=== PATIENT | male | born 1955 | race African-American/Black ===

== ENCOUNTER → 2020-01-05 | Outpatient (CLI) | payer OTHER, MEDICAID ==
[2019-04-12 11:52] VITALS: BP 162/97
[~2020-01-05] MED LIST: AMLO10TA4 PO; AMLO5TAB10 PO; AMOX500C PO; BYSTOLIC10 MG PO; CARV3.1210 PO; CEPH500C PO; CYCL10TA2 PO; GABA300C18 PO; GADOTERATE 7.5 MMOL/15ML VIAL. IVP ONE; HYDR-3165 PO; HYDR12.575 PO; HYDR12.58 PO; LISI-334 PO; LOSA-73 PO; LOVA20TA2 PO; MELO15TA23 PO; MELO15TA6 PO; OLME1TAB35 PO; OXYC10TA PO; OXYC15TA61 PO; cipro
--- NOTE | 2020-01-05 16:24 | KCIC ---
MR of the left foot HISTORY: Left foot mass. TECHNIQUE: Routine multiplanar sequences are obtained. FINDINGS: There is a fusiform thickening and signal abnormality within the plantar aponeurosis, at the level of the tarsometatarsal joints. This measures about 2 cm wide by 1 cm height by 3 cm anterior to posterior. This is heterogeneous, with a combination of low to intermediate T2 signal as well as some enhancement of its medial aspect. No other soft tissue mass is seen. No abnormal fluid collection or abnormal enhancement is otherwise seen. No evidence of acute fracture, marrow edema or aggressive bone destruction. Subchondral cystic changes at the lateral talar dome, likely degenerative or due to old transchondral trauma. No evidence of fracture or unstable osteochondral lesion. No significant tendon sheath fluid. No acute tendon disruption. Lisfranc ligament complex appears intact as does tarsometatarsal alignment. Degenerative changes are identified throughout the foot. These are greatest at the first MTP joint and hallux sesamoids. Prominent degenerative dorsal spurring at the navicular bone. Small chronic ossicle identified at the medial ankle just anterior to the medial malleolus. IMPRESSION: 1. Heterogeneous, partially enhancing fusiform mass at the plantar aponeurosis, plantar to the tarsometatarsal joints. This is most compatible with plantar fibromatosis. If there is any clinical growth or development of new symptoms, could further evaluate with follow-up MRI or ultrasound. 2. DJD. Electronically signed by: Hadley Rodrigues MD (01/05/2020 4:21 PM) [facility]
== END | disposition home or self-care (01) ==
LOC: KCIC MRI 11:39
PROVIDERS: ATTEND Podiatrist
DX: M19.072 Primary osteoarthritis, left ankle and foot (principal); M25.872 Other specified joint disorders, left ankle and foot
CPT/HCPCS: 73720; 82565; A9575

== ENCOUNTER 2020-10-28 12:46 | Emergency (ER) | payer OTHER, MEDICAID ==
[~2020-10-28] VITALS: Ht 193 cm; Wt 113.0 kg
[~2020-10-28 12:46] MED LIST changes: +AMLO-186 PO; -AMLO5TAB10 PO; -GADOTERATE 7.5 MMOL/15ML VIAL. IVP ONE
[2020-10-28 12:50] VITALS: BP 154/92
--- NOTE | 2020-10-28 13:38 | RAD ---
EXAMINATION: XR FOOT_RIGHT 3 VIEWS, XR EXAM OF ANKLE_RIGHT 3VIEWS CLINICAL HISTORY: Right foot and ankle pain, no injury TECHNIQUE: XR FOOT_RIGHT 3 VIEWS, XR EXAM OF ANKLE_RIGHT 3VIEWS Number of Images/Views: 3 each COMPARISON: None FINDINGS: Mild degenerative changes first MTP joint with small corticated ossicle along the lateral joint tony n, possibly related to remote trauma. Mild degenerative changes in the midfoot with dorsal spurring. Bony protuberance along the medial malleolus with adjacent small corticated ossicle, possibly related to remote trauma. No acute fracture. Small posterior calcaneal enthesophyte. No focal soft tissue sw elling. IMPRESSION: No acute osseous abnormality right foot or ankle. Degenerative changes as described. Electronically signed by: Bakari Booth DO (10/28/2020 1:35 PM) [facility]
[2020-10-28] MEDS ORDERED: ONDANSETRON ODT 4 MG TAB.RAPDIS. PO ONE (14:00)
[2020-10-28] MEDS ORDERED: HYDROcodone/APAP 5/325MG 1 TAB TABLET PO ONE (14:00)
[2020-10-28] MEDS ORDERED: predniSONE 10 MG TABLET PO ONE (14:00)
--- NOTE | 2020-10-28 14:31 | PHYS DOC ---
Past Medical History Past Medical History: CAD, High Cholesterol, Hypertension, Renal Disease, Other Additional Past Medical Histor: back pain, gout Past Surgical History: Other Additional Past Surgical Histo: rotator cuff, kidney removed, cardiac stents Smoking Status: Current Some Day Smoker Alcohol Use: Rarely Drug Use: None General Adult EDM: Chief Complaint: LOWER EXT PAIN HPI: HPI: Patient is a 64 year old male with history of CAD, hypertension, kidney disease, arthritis to bilateral feet, gout to bilateral feet and ankles, who presents to the ED today complaining of moderate pain to the right foot and ankle that began this morning when he woke up. Patient describes the pain as a burning sensation. He states the pain is worse on weightbearing. Patient denies any known injury. He states he has surgery scheduled on November 25 for his right foot which he states is bone to bone, has bone spurs as well as arthritis. He states his doctor put him on gabapentin, he states he is allergic to any NSAIDs. He states he took the gabapentin with minimal relief. Patient is requesting x-rays of the right foot or ankle. He also states he would like something for pain. He also mentioned he has some abdominal pain and he believes he is constipated. Last bowel movement was 3 days ago. Review of Systems: Review of Systems: Constitutional: Denies fever or chills. [] Eyes: Denies change in visual acuity. [] HENT: Denies nasal congestion or sore throat. [] Respiratory: Denies cough or shortness of breath. [] Cardiovascular: Denies chest pain or edema. [] GI: Reports abdominal pain, concern for constipation, denies nausea, vomiting, bloody stools or diarrhea. [] : Denies dysuria. [] Musculoskeletal: Reports right foot and right ankle pain. Integument: Denies rash. [] Neurologic: Denies headache, focal weakness or sensory changes. [] Psychiatric: Denies depression or anxiety. [] Heart Score: Risk Factors: Risk Factors: DM, Current or recent (<one month) smoker, HTN, HLP, family history of CAD, obesity. Risk Scores: Score 0 - 3: 2.5% MACE over next 6 weeks - Discharge Home Score 4 - 6: 20.3% MACE over next 6 weeks - Admit for Clinical Observation Score 7 - 10: 72.7% MACE over next 6 weeks - Early Invasive Strategies Current Medications: Current Medications Medications (Trade) Dose Ordered Sig/Tyler Start Time Stop Time Status Last Admin Dose Admin Acetaminophen/ Hydrocodone Bitart (Lortab 5/325) 2 tab 1X ONCE 10/28/20 14:00 10/28/20 14:03 DC 10/28/20 14:20 2 TAB Ondansetron HCl (Zofran Odt) 4 mg 1X ONCE 10/28/20 14:00 10/28/20 14:03 DC 10/28/20 14:20 4 MG Prednisone (Prednisone) 50 mg 1X ONCE 10/28/20 14:00 10/28/20 14:03 DC 10/28/20 14:20 50 MG Allergies: Allergies: Allergies Coded Allergies Type Severity Reaction Last Updated Verified morphine Allergy Severe Hives 08/15/15 Yes aspirin Allergy Intermediate rash 08/15/15 Yes Physical Exam: PE: Constitutional: Well developed, well nourished, no acute distress, non-toxic appearance. [] HENT: Normocephalic, atraumatic, bilateral external ears normal, oropharynx moist, no oral exudates, nose normal. [] Eyes: PERRLA, EOMI, conjunctiva normal, no discharge. [] Neck: Normal range of motion, no tenderness, supple, no stridor. [] Cardiovascular:Heart rate regular rhythm, no murmur [] Lungs & Thorax: Bilateral breath sounds clear to auscultation [] Abdomen: Bowel sounds normal, soft, no tenderness, no masses, no pulsatile masses. [] Skin: Warm, dry, no erythema, no rash. [] Back: No tenderness, no CVA tenderness. [] Extremities: Right foot and right ankle with no obvious deformity. Tenderness on palpation of the right lateral ankle. Full range of motion to the right foot and ankle. No warmth to the foot or ankle. No erythema. +2 right pedal pulse. Cap refill less than 2 seconds to the right toes. Neurologic: Alert and oriented X 3, normal motor function, normal sensory function, no focal deficits noted. [] Psychologic: Affect normal, judgement normal, mood normal. [] Current Patient Data: Vital Signs: Vital Signs Date Time Temp Pulse Resp B/P (MAP) Pulse Ox O2 Delivery O2 Flow Rate FiO2 10/28/20 12:50 98.5 81 16 154/92 (112) 98 Room Air 98.5 EKG: EKG: [] Radiology/Procedures: Radiology/Procedures: []PROCEDURE: ANKLE RIGHT 3V EXAMINATION: XR FOOT_RIGHT 3 VIEWS, XR EXAM OF ANKLE_RIGHT 3VIEWS CLINICAL HISTORY: Right foot and ankle pain, no injury TECHNIQUE: XR FOOT_RIGHT 3 VIEWS, XR EXAM OF ANKLE_RIGHT 3VIEWS Number of Images/Views: 3 each COMPARISON: None FINDINGS: Mild degenerative changes first MTP joint with small corticated ossicle along the lateral joint margin, possibly related to remote trauma. Mild degenerative changes in the midfoot with dorsal spurring. Bony protuberance along the medial malleolus with adjacent small corticated ossicle, possibly related to remote trauma. No acute fracture. Small posterior calcaneal enthesophyte. No focal soft tissue swelling. IMPRESSION: No acute osseous abnormality right foot or ankle. Degenerative changes as described. Electronically signed by: Bakari Corona DO (10/28/2020 1:35 PM) [facility] DICTATED and SIGNED BY: BAKARI CORONA DO DATE: 10/28/20 [id number] PROCEDURE: ACUTE ABDOMEN SERIES Supine and upright views of the abdomen Clinical indications: Abdominal pain. FINDINGS: No obstructive bowel pattern is evident. No significant air-fluid levels are seen. No free intraperitoneal air is seen. Moderate fecal retention and seen throughout the colon and rectosigmoid region. Surgical clips are seen within the midline of the abdomen. Osseous structures are intact. IMPRESSION: Moderate fecal retention. Electronically signed by: Shay Hanna MD (10/28/2020 2:29 PM) [id number] DICTATED and SIGNED BY: SHAY HANNA MD DATE: 10/28/20 [id number] Course & Med Decision Making: Course & Med Decision Making Pertinent Labs and Imaging studies reviewed. (See chart for details) This is a 64-year-old male patient presenting to the ED today with right foot and right ankle pain, symptoms began this morning. Has history of DJD to the right foot and ankle, arthritis, bone spurs, gout. Is scheduled to have surgery on the right foot on November 25, 2019. He is requesting x-rays of the right foot and ankle. X-rays were done in the ED. No acute findings noted. Upon giving him x-ray results he requested an x-ray of his abdomen stating he is constipated and has some pain. Acute abdominal noted for moderate constipation. Wrote patient prescription for mag citrate as well as MiraLAX. Provided follow-up information. Patient has PCP as well as a dust handler that he can follow-up with. Given prescription for Medrol Dosepak for his gout. Pratibha Disclaimer: Pratibha Disclaimer: This electronic medical record was generated, in whole or in part, using a voice recognition dictation system. Departure Departure Impression: Primary Impression: Constipation Qualified Codes: K59.00 - Constipation, unspecified Additional Impressions: Degenerative joint disease, right, foot Qualified Codes: M19.071 - Primary osteoarthritis, right ankle and foot Acute right ankle pain Disposition: DC HOME SELF CARE/HOMELESS Condition: STABLE Referrals: DAVID KILGORE MD (PCP) follow up this week Patient Instructions: Arthritis, Degenerative-Brief, Constipation, Adult Additional Instructions: You were evaluated in the emergency room, your right foot x-rays and right ankle x-rays were negative for any acute findings. Take the prescribed medications as ordered. Follow-up with your own doctor in the course of this week. Your x- ray of the abdomen was noted for moderate constipation. Increase your dietary fiber intake as well as water intake. Take MiraLAX every day. Take Mag Citrate today Scripts Polyethylene Glycol 3350 (MIRALAX) 17 Gm Powd.pack 1 PACKET PO DAILY for constipation for 2 Days, #2 PACKET 0 Refills dissolve in water Prov: ABHI PRESTON APRN 10/28/20 Magnesium Citrate (MAGNESIUM CITRATE) 296 Ml Solution 296 ML PO ONCE, #296 ML Prov: ABHI PRESTON DEVELOPMENT COACH 10/28/20 Methylprednisolone (MEDROL) 4 Mg Tab.ds.pk 1 PKG PO UD, #1 PKG Prov: ABHI PRESTON DEVELOPMENT COACH 10/28/20 ABHI PRESTON APRN Oct 28, 2020 14:31
[2020-10-28] MEDS ORDERED: METH4TAB2 PO (14:46)
[2020-10-28] MEDS ORDERED: POLY17PO29 PO (14:46)
[2020-10-28] MEDS ORDERED: MAGN296S68 PO (14:46)
== END 2020-10-28 16:20 | disposition home or self-care (01) ==
LOC: ER 12:46
DX: K59.00 Constipation, unspecified (principal); M19.071 Primary osteoarthritis, right ankle and foot; M79.671 Pain in right foot; M25.571 Pain in right ankle and joints of right foot; R20.8 Other disturbances of skin sensation; I11.9 Hypertensive heart disease without heart failure; E78.00 Pure hypercholesterolemia, unspecified; Z98.890 Other specified postprocedural states; Z87.891 Personal history of nicotine dependence; Z88.6 Allergy status to analgesic agent; Z88.8 Allergy status to other drugs, medicaments and biological substances
CPT/HCPCS: 73610; 73630; 74022; 99284; J7512

== ENCOUNTER → 2020-11-26 | Outpatient (CLI) | payer OTHER, MEDICAID ==
[2020-10-28 12:50] VITALS: BP 154/92
[~2020-11-26] MED LIST changes: +MAGN296S68 PO; +METH4TAB2 PO; +POLY17PO29 PO
== END ==
LOC: LAB 13:26
PROVIDERS: ATTEND Podiatrist
DX: U07.1 COVID-19 (principal); Z01.812 Encounter for preprocedural laboratory examination
CPT/HCPCS: U0003

== ENCOUNTER 2020-12-20 10:41 | Day surgery (SDC) | payer OTHER, MEDICAID ==
[~2020-12-20] VITALS: Ht 193 cm; Wt 113.9 kg
[~2020-12-20 10:41] MED LIST changes: +ALBU2.5V8 INH; +CARV25TA2 PO; +FURO-68 PO; +HYDROmorphone 2 MG/ML VIAL IVP PRN; +IV RINGERS,LACTATED 1000ML 1,000 ML IV SCH; +LIPITOR80 MG PO; -LISI-334 PO; +LISI20TA18 PO; +OXYB10TA26 PO; +PROCHLORPERAZINE 10 MG/2 ML VIAL. IVP PRN; +fentaNYL PF VIAL 100 MCG/2 ML VIAL IVP PRN
[2020-12-20] MEDS ORDERED: MIDAZOLAM HCL/PF 2 MG/2 ML VIAL. ONE (12:21)
[2020-12-20] MEDS ORDERED: fentaNYL PF VIAL 100 MCG/2 ML VIAL ONE ×2 (12:21→15:44)
[2020-12-20] MEDS ORDERED: PROPOFOL 0 ML IV ONE (12:21)
[2020-12-20 12:25] LABS: BASO % 1 % (0-3); CREATININE 2.4 mg/dL (0.7-1.3); EOS % 1 % (0-3); GFR 32.9; HEMATOCRIT 44.7 % (39.0-53.0); HEMOGLOBIN 14.9 g/dL (13.0-17.5); LYMPH # 1.3 x10^3/uL (1.0-4.8); LYMPH % 23 % (24-48); MEAN CORPUSCULAR HEMOGLOBIN 29 pg (25-35); MEAN CORPUSCULAR HGB CONC 33 g/dL (31-37); MEAN CORPUSCULAR VOLUME 86 fL (79-100); MONO # 0.6 x10^3/uL (0.0-1.1); MONO % 11 % (0-9); NEUT # 3.7 x10^3/uL (1.8-7.7); NEUT % 65 % (31-73); PLATELET COUNT 191 x10^3/uL (140-400); POTASSIUM 4.4 mmol/L (3.5-5.1); RED BLOOD COUNT 5.19 x10^6/uL (4.30-5.70); RED CELL DISTRIBUTION WIDTH 15.1 % (11.5-14.5); WHITE BLOOD COUNT 5.7 x10^3/uL (4.0-11.0)
[2020-12-20 12:30] LABS: ALBUMIN 3.4 g/dL (3.4-5.0); ALBUMIN/GLOBULIN RATIO 0.9 (1.0-1.7); TOTAL BILIRUBIN 1.5 mg/dL (0.2-1.0); TOTAL PROTEIN 7.2 g/dL (6.4-8.2)
[2020-12-20] MEDS ORDERED: PROPOFOL 50 ML IV ONE (12:44)
[2020-12-20] MEDS ORDERED: DEXAMETHASONE SOD PHOS 4 MG/ML VIAL ONE (12:45)
[2020-12-20] MEDS ORDERED: LIDOCAINE 2% PF 5 ML VIAL. ONE (12:45)
[2020-12-20] MEDS ORDERED: ONDANSETRON PF 4 MG/2 ML VIAL. ONE (12:45)
[2020-12-20] MEDS ORDERED: BUPIVACAINE MPF 0.5% 30 ML VIAL. ONE (13:10)
[2020-12-20] MEDS ORDERED: LIDOCAINE 1% Multi-Dose 20 ML VIAL. ONE (13:10)
--- NOTE | 2020-12-20 13:14 | EKG ---
[facility] [address] [place] [address] Test Date: 2020-12-20 Test Time: 11:55:37 Pat Name: LU KIM Department: Room: Gender: Pelota Maker: : [id number] Requested By: ELLEN ANTONIO Order Number: [id number] Reading MD: Garo Esparza Measurements Intervals [place] Rate: 62 P: 34 IN: 176 QRS: -2 QRSD: 90 T: 220 QT: 452 QTc: 461 Interpretive Statements SINUS RHYTHM LEFT ATRIAL ABNORMALITY LEFTWARD AXIS LVH WITH REPOLARIZATION ABNORMALITY ABNORMAL ECG Electronically Signed On 12-25-2020 9:55:51 [employer] by Garo Esparza
[2020-12-20] MEDS ORDERED: PHENYLEPHRINE in 0.9% NACL PF 1 MG/10 ML SYRINGE. IV ONE (13:38)
[2020-12-20] MEDS ORDERED: ePHEDrine PF IN SALINE 50 MG/10 ML SYRINGE. IV ONE (13:38)
[2020-12-20] MEDS ORDERED: PHENYLEPHRINE 10 MG/ML VIAL. ONE (13:44)
[2020-12-20] MEDS ORDERED: GLYCOPYRROLATE 1 MG/5 ML VIAL. ONE (13:56)
[2020-12-20] MEDS ORDERED: SEVOFLURANE 61 TO 120 MINUTES. IH ONE (14:53)
[2020-12-20] MEDS ORDERED: HYDROcodone/APAP 7.5/325MG 1 TAB TABLET PO ONE (15:30)
[2020-12-20] MEDS ORDERED: HYDR-2763 PO (15:32)
[2020-12-20] MEDS: fentaNYL PF VIAL 100 MCG/2 ML VIAL IVP PRN ×2 (15:47→15:57)
[2020-12-20 16:15] VITALS: BP 130/79
--- NOTE | 2020-12-27 12:34 | OP ---
DATE OF SURGERY: 12/20/2020 INDICATIONS: The patient has been seen for multiple times for very painful interdigital large calluses left foot, the most problematic due to a large arthritic spurring of the distal interphalangeal joint of the great toe and enlarged proximal interphalangeal joint of the second toe left foot. The patient has tried to improve with continued maintenance care and is anxious to have a more permanent solution to his recurring problem. The patient has been cleared for surgery by Cardiology and hospitalist. The patient is seen prior to surgery. Reviewed the procedure that we would be performing, which is an arthroplasty of the proximal phalanx great toe with possible fusion with K-wire fixation and hammertoe correction, second toe. The patient understands risks, complications, i.e., of infection. PREOPERATIVE DIAGNOSES: Degenerative joint disease, hammertoe deformities of left great toe and hammertoe deformity, second toe, left foot. PROCEDURE: 1. Arthroplasty of left great toe with K-wire fixation and fusion. 2. Arthroplasty hammertoe correction of second toe, left foot. ANESTHESIA: General anesthesia with an ankle block. DESCRIPTION OF PROCEDURE: The patient was brought to the operating room and induced with general anesthesia. A total ankle block was performed using 20 mL of 1% Xylocaine and 0.5% Marcaine. Betadine scrub and prep was performed. Tourniquet was placed at the ankle, inflated to 250 mmHg. The foot was draped and prepped accordingly. Attention was directed to the dorsal aspect of the right great toe where a linear incision was made over the interphalangeal joint. It was deepened. The distal phalanx is isolated and the distal aspect is resected using an oscillating saw. The base of the distal phalanx is denuded of its cartilage using a rotary drill and bone curette. The head of the proximal phalanx is reshaped to try to make more of a ball and socket fit using a 0.062 K-wire was run from proximal to distal through the tip of the toe and then this was done twice and then the joint was reapproximated and the K-wire was placed for stabilization and fixation into the proximal phalanx. X-ray confirmed adequate placement, the K-wires were then trimmed and Jurgan balls were placed on the tip of the toes. Attention was directed to the second toe where two semielliptical incisions were made, deepened. The proximal phalanx is isolated at the proximal interphalangeal joint. The head of the proximal phalanx was resected ,some of the tendon is cut off and placed into the area where the joint was and deep structures were closed with 4-0 Vicryl and skin with 4-0 nylon. A sterile dressing was applied. Tourniquet released. Adequate capillary filling time is noted immediately. The patient left the operating room in stable satisfactory condition to be seen first to next week as weather permitting. ELLEN ANTONIO DPM DR: BRADY/shelia JOB#: [id number] / [id number]
== END 2020-12-20 16:50 | disposition home or self-care (01) ==
LOC: SURG 10:41
PROVIDERS: ATTEND Podiatrist
DX: M20.42 Other hammer toe(s) (acquired), left foot (principal); M19.072 Primary osteoarthritis, left ankle and foot; I13.0 Hypertensive heart and chronic kidney disease with heart failure and stage 1 through stage 4 chronic kidney disease, or unspecified chronic kidney disease; I50.9 Heart failure, unspecified; N18.30 Chronic kidney disease, stage 3 unspecified; K21.9 Gastro-esophageal reflux disease without esophagitis; E66.9 Obesity, unspecified; M10.9 Gout, unspecified; E78.00 Pure hypercholesterolemia, unspecified; F41.9 Anxiety disorder, unspecified; F32.9 Major depressive disorder, single episode, unspecified; F17.210 Nicotine dependence, cigarettes, uncomplicated; Z79.899 Other long term (current) drug therapy; Z98.890 Other specified postprocedural states; Z88.8 Allergy status to other drugs, medicaments and biological substances; Z82.49 Family history of ischemic heart disease and other diseases of the circulatory system; Z20.822 Contact with and (suspected) exposure to COVID-19
CPT/HCPCS: 28285; 36415; 80053; 85025; 87426; 93005; C9803; J0690; J1100; J2370; J2405; J2704; J3010; J3490; U0003; J2250

== ENCOUNTER 2021-03-11 13:27 | Emergency (ER) | payer OTHER, MEDICAID ==
[~2021-03-11] VITALS: Ht 193 cm; Wt 117.0 kg
[~2021-03-11 13:27] MED LIST changes: +HYDR-2763 PO; -HYDROmorphone 2 MG/ML VIAL IVP PRN; -IV RINGERS,LACTATED 1000ML 1,000 ML IV SCH; -PROCHLORPERAZINE 10 MG/2 ML VIAL. IVP PRN; -fentaNYL PF VIAL 100 MCG/2 ML VIAL IVP PRN
[2021-03-11 15:22] LABS: BASO % 1 % (0-3); EOS # 0.1 x10^3/uL (0.0-0.7); EOS % 2 % (0-3); HEMATOCRIT 38.6 % (39.0-53.0); HEMOGLOBIN 12.4 g/dL (13.0-17.5); LYMPH # 1.5 x10^3/uL (1.0-4.8); LYMPH % 32 % (24-48); MEAN CORPUSCULAR HEMOGLOBIN 28 pg (25-35); MEAN CORPUSCULAR HGB CONC 32 g/dL (31-37); MEAN CORPUSCULAR VOLUME 87 fL (79-100); MONO # 0.5 x10^3/uL (0.0-1.1); MONO % 10 % (0-9); NEUT # 2.5 x10^3/uL (1.8-7.7); NEUT % 55 % (31-73); PLATELET COUNT 197 x10^3/uL (140-400); RED BLOOD COUNT 4.43 x10^6/uL (4.30-5.70); RED CELL DISTRIBUTION WIDTH 15.1 % (11.5-14.5); WHITE BLOOD COUNT 4.7 x10^3/uL (4.0-11.0)
--- NOTE | 2021-03-11 15:31 | RAD ---
EXAM: AP View of the chest DATE: 03/11/2021 3:06 PM INDICATION: Reason: cough / Spl. Instructions: / History: COMPARISON: No Prior FINDINGS: Heart is mildly enlarged. Aorta is tortuous. Mediastinal and hilar contours are stable. Patchy opacities in the perihilar region and right midlung likely developing consolidative process. A telectasis may also have this appearance. No pleural effusion or pneumothorax. Severe left shoulder joint osteoarthritis. IMPRESSION: Patchy opacities in the perihilar region and right midlung likely developing consolidative process. A telectasis may also have this appearance. Electronically signed by: Segundo Maxwell MD (03/11/2021 3:28 PM) [facility]
[2021-03-11 15:35] LABS: CALCIUM 8.7 mg/dL (8.5-10.1); CREATININE 1.6 mg/dL (0.7-1.3); GFR 52.6; POTASSIUM 4.5 mmol/L (3.5-5.1)
[2021-03-11 15:40] LABS: ALBUMIN 2.9 g/dL (3.4-5.0); ALBUMIN/GLOBULIN RATIO 0.9 (1.0-1.7); MAGNESIUM 1.9 mg/dL (1.8-2.4); TOTAL BILIRUBIN 0.3 mg/dL (0.2-1.0); TOTAL PROTEIN 6.3 g/dL (6.4-8.2)
[2021-03-11] MEDS ORDERED: IOHEXOL 300 MG/ML 100ML VIAL. IV ONE (15:45)
[2021-03-11] MEDS ORDERED: CONTRAST GIVEN. MC PRN (15:45)
--- NOTE | 2021-03-11 15:58 | ED.ADGEN ---
Past Medical History Past Medical History: CAD, High Cholesterol, Hypertension, Renal Disease, Other Additional Past Medical Histor: back pain, gout Past Surgical History: Other Additional Past Surgical Histo: rotator cuff, kidney removed, cardiac stents Smoking Status: Current Some Day Smoker Alcohol Use: Rarely Drug Use: None General Adult EDM: Chief Complaint: DIZZY/LIGHT HEADED HPI: HPI: Patient is a 65 year old AA male who presents emergency department with complaints of right ear pain and swelling for the last week. Patient reports that he has had some discharge from the ear as well has mostly been clear to yellow in color. He denies any fever, decreased hearing, shortness of breath, cough, nausea, vomiting, diarrhea, abdominal pain, rash, sore throat, body aches, or fatigue. Patient states he has felt lightheaded with position changes today but denies any sensation of the room spinning. He denies any itching of his ear or sticking anything into his ear at the onset of his symptoms. He reports that the pain is constant and he rates it a 10 out of 10 on the pain scale, patient denies any alleviating factors it is worse if the area is touched. He denies any exposure to COVID-19, patient reports that he has received a complete series of the Covid vaccine. Review of Systems: Review of Systems: Complete ROS is negative unless otherwise noted in HPI. Current Medications: Current Medications Medications (Trade) Dose Ordered Sig/[facility] Start Time Stop Time Status Last Admin Dose Admin Info (CONTRAST GIVEN -- Rx MONITORING) 1 each PRN DAILY PRN 03/11/21 15:45 03/11/21 20:31 DC Iohexol (Omnipaque 300 Mg/ml) 60 ml 1X ONCE 03/11/21 15:45 03/11/21 15:46 DC 03/11/21 16:00 60 ML Sodium Chloride 1,000 ml @ 1,000 mls/hr 1X ONCE 03/11/21 17:15 03/11/21 18:14 DC 03/11/21 17:17 1,000 MLS/HR Allergies: Allergies: Allergies Coded Allergies Type Severity Reaction Last Updated Verified morphine Allergy Severe Hives 12/20/20 Yes aspirin Allergy Intermediate rash-tolerates baby aspirin 12/20/20 Yes Physical Exam: PE: See Above Constitutional: Well developed, well nourished, no acute distress, non-toxic appearance. [] HENT: Normocephalic, atraumatic, bilateral TMs normal, left external ear normal, nose normal; diffuse tenderness, erythema, and 1+ edema of the right external ear, no visible drainage, tenderness over the right mastoid. [] Eyes: PERRLA, EOMI, conjunctiva normal, no discharge. [] Neck: Normal range of motion, no stridor. [] Cardiovascular:Heart rate regular rhythm Lungs & Thorax: Respirations even and unlabored, no retractions, no respiratory distress Skin: Warm, dry, no rash. [] Extremities: No cyanosis, ROM intact, no edema. [] Neurologic: Alert and oriented X 3, no focal deficits noted. [] Psychologic: Affect normal, judgement normal, mood normal. [] Current Patient Data: Labs: Laboratory Tests Test 03/11/21 14:59 White Blood Count 4.7 x10^3/uL (4.0-11.0) Red Blood Count 4.43 x10^6/uL (4.30-5.70) Hemoglobin 12.4 g/dL (13.0-17.5) L Hematocrit 38.6 % (39.0-53.0) L Mean Corpuscular Volume 87 fL (79-100) Mean Corpuscular Hemoglobin 28 pg (25-35) Mean Corpuscular Hemoglobin Concent 32 g/dL (31-37) Red Cell Distribution Width 15.1 % (11.5-14.5) H Platelet Count 197 x10^3/uL (140-400) Neutrophils (%) (Auto) 55 % (31-73) Lymphocytes (%) (Auto) 32 % (24-48) Monocytes (%) (Auto) 10 % (0-9) H Eosinophils (%) (Auto) 2 % (0-3) Basophils (%) (Auto) 1 % (0-3) Neutrophils # (Auto) 2.5 x10^3/uL (1.8-7.7) Lymphocytes # (Auto) 1.5 x10^3/uL (1.0-4.8) Monocytes # (Auto) 0.5 x10^3/uL (0.0-1.1) Eosinophils # (Auto) 0.1 x10^3/uL (0.0-0.7) Basophils # (Auto) 0.0 x10^3/uL (0.0-0.2) Sodium Level 144 mmol/L (136-145) Potassium Level 4.5 mmol/L (3.5-5.1) Chloride Level 110 mmol/L (98-107) H Carbon Dioxide Level 27 mmol/L (21-32) Anion Gap 7 (6-14) Blood Urea Nitrogen 26 mg/dL (8-26) Creatinine 1.6 mg/dL (0.7-1.3) H Estimated GFR (Cockcroft-Gault) 52.6 BUN/Creatinine Ratio 16 (6-20) Glucose Level 97 mg/dL (70-99) Lactic Acid Level 0.6 mmol/L (0.4-2.0) Calcium Level 8.7 mg/dL (8.5-10.1) Magnesium Level 1.9 mg/dL (1.8-2.4) Total Bilirubin 0.3 mg/dL (0.2-1.0) Aspartate Amino Transferase (AST) 19 U/L (15-37) Alanine Aminotransferase (ALT) 18 U/L (16-63) Alkaline Phosphatase 89 U/L (46-116) Total Protein 6.3 g/dL (6.4-8.2) L Albumin 2.9 g/dL (3.4-5.0) L Albumin/Globulin Ratio 0.9 (1.0-1.7) L Laboratory Tests 03/11/21 14:59 Laboratory Tests 03/11/21 14:59 Vital Signs: Vital Signs Date Time Temp Pulse Resp B/P (MAP) Pulse Ox O2 Delivery O2 Flow Rate FiO2 03/11/21 19:41 72 19 149/85 (106) 97 Room Air 03/11/21 14:15 97.1 97.1 EKG: EKG: [] Heart Score: C/O Chest Pain: No Risk Scores: Score 0 - 3: 2.5% MACE over next 6 weeks - Discharge Home Score 4 - 6: 20.3% MACE over next 6 weeks - Admit for Clinical Observation Score 7 - 10: 72.7% MACE over next 6 weeks - Early Invasive Strategies Radiology/Procedures: Radiology/Procedures: PROCEDURE: CHEST AP ONLY EXAM: AP View of the chest DATE: 03/11/2021 3:06 PM INDICATION: Reason: cough / Spl. Instructions: / History: COMPARISON: No Prior FINDINGS: Heart is mildly enlarged. Aorta is tortuous. Mediastinal and hilar contours are stable. Patchy opacities in the perihilar region and right midlung likely developing consolidative process. Atelectasis may also have this appearance. No pleural effusion or pneumothorax. Severe left shoulder joint osteoarthritis. IMPRESSION: Patchy opacities in the perihilar region and right midlung likely developing consolidative process. Atelectasis may also have this appearance. Electronically signed by: Segundo Maxwell MD (03/11/2021 3:28 PM) [facility]: CT HEAD WO/W CONTRAST CT HEAD WITHOUT AND WITH IV CONTRAST History: Rule out malignancy right ear. Lightheadedness. Comparison: None. Technique: Noncontrast CT imaging was performed of the head. Findings: No intracranial hemorrhage. No mass effect. No hydrocephalus. No evidence of territorial infarction. Imaged orbits are unremarkable. Imaged paranasal sinuses and mastoid air cells are clear. No acute calvarial fracture. Nonspecific soft tissue stranding and skin thickening at the right ear and adjacent soft tissues. The right mastoid air cells are clear and the adjacent skull cortex is intact. No masses identified. Impression: 1. No acute intracranial abnormality. 2. Nonspecific subcutaneous stranding and skin thickening at the right ear and adjacent soft tissues. Correlate with exam for cellulitis. ----- Exposure: One or more of the following individualized dose reduction techniques were utilized for this examination: 1. Automated exposure control 2. Adjustment of the mA and/or kV according to patient size 3. Use of iterative reconstruction technique. Electronically signed by: Candido Gurrola MD (03/11/2021 4:44 PM) [facility] [] Course & Med Decision Making: Course & Med Decision Making Pertinent Labs and Imaging studies reviewed. (See chart for details) [] Dragon Disclaimer: Dragon Disclaimer: This electronic medical record was generated, in whole or in part, using a voice recognition dictation system. Departure Departure Impression: Primary Impression: Otitis externa of right ear Additional Impression: Cellulitis of right external ear Disposition: HOME / SELF CARE / HOMELESS Condition: STABLE Referrals: BRADLY FOSS DO (PCP) Patient Instructions: Cellulitis, [id number], Otitis Externa, [id number] Additional Instructions: Fill the prescriptions use them as directed. You may also take ibuprofen as needed for pain. Follow-up with your primary care doctor in 1 to 2 days for reevaluation, return to the ER if symptoms worsen or fever develops. Scripts Hydrocodone Bit/Acetaminophen (HYDROCODONE-APAP 5-325 ) 1 Tab Tablet 1 TAB PO PRN Q6HRS PRN for PAIN for 3 Days, #10 TAB 0 Refills Prov: DIMITRIOS SCHROEDER APRN 03/11/21 Neomycin/Polymyxin B Sulf/Hc (GVWCXEPV-[id number]-NH EAR SUSP) 10 Ml Drops.susp 4 DROP RIGHT EAR TID for 5 Days, #10 ML 0 Refills Prov: DIMITRIOS SCHROEDER APRN 03/11/21 Clindamycin Hcl (CLINDAMYCIN HCL) 150 Mg Capsule 450 MG PO TID for 7 Days, #63 CAP 0 Refills Prov: DIMITRIOS SCHROEDER APRN 03/11/21 Attending Signature Attending Signature I have participated in the care of this patient and I have reviewed and agree with all pertinent clinical information above including history, exam, and recommendations. Problem Qualifiers Primary Impression: Otitis externa of right ear Otitis externa type: diffuse Chronicity: acute Qualified Codes: H60.311 - Diffuse otitis externa, right ear DIMITRIOS SCHROEDER APRN Mar 11, 2021 15:58 NELDA PELLETIER MD Mar 12, 2021 06:16
--- NOTE | 2021-03-11 16:47 | RAD ---
CT HEAD WITHOUT AND WITH IV CONTRAST History: Rule out malignancy right ear. Lightheadedness. Comparison: None. Technique: Noncontrast CT imaging was performed of the head. Findings: No intracranial hemorrhage. No mass effect. No hydrocephalus. No evidence of territorial infarction. Imaged orbits are unremarkable. Imaged paranasal sinuses and mastoid air cells are clear. No acute ca lvarial fracture. Nonspecific soft tissue stranding and skin thickening at the right ear and adjacent soft tissues. The right mastoid air cells are clear and the adjacent skull cortex is intact. No mass es identified. Impression: 1. No acute intracranial abnormality. 2. Nonspecific subcutaneous stranding and skin thickening at the right ear and adjacent soft tissues . Correlate with exam for cellulitis. ----- Exposure: One or more of the following individualized dose reduction techniques were utilized for thi s examination: 1. Automated exposure control 2. Adjustment of the mA and/or kV according to patient size 3. Use of iterative reconstruction technique. Electronically signed by: Candido Gurrola MD (03/11/2021 4:44 PM) [facility]
[2021-03-11] MEDS ORDERED: CLIN150C15 PO (17:03)
[2021-03-11] MEDS ORDERED: HYDR-2761 PO (17:03)
[2021-03-11] MEDS ORDERED: NEOM10DR32 RIGHT EAR (17:03)
[2021-03-11] MEDS ORDERED: IV NORMAL SALINE 1000ML BAG 1,000 ML IV ONE (17:15)
[2021-03-11 19:41] VITALS: BP 149/85
[2021-03-12] MEDS ORDERED: HYDR-2761 PO (13:18)
--- NOTE | 2021-03-12 13:22 | VNOTE ---
CALL BACK NOTE CALL BACK Call from pharmacist at [facility] on [facility]. Pt is requesting to fill prescriptions that were sent to the [facility] location electronically yesterday at this location today. Pharmacist is unable to transfer controlled RX to this location. Previous Rx for hydrocodone cancelled and new RX for hydrocodone sent to the [place] location as requested. DIMITRIOS SCHROEDER APRN Mar 12, 2021 13:22
== END 2021-03-11 20:24 | disposition home or self-care (01) ==
LOC: ER 13:27
DX: H60.11 Cellulitis of right external ear (principal); R60.0 Localized edema; R42 Dizziness and giddiness; I11.9 Hypertensive heart disease without heart failure; E78.00 Pure hypercholesterolemia, unspecified; Z98.890 Other specified postprocedural states; Z87.891 Personal history of nicotine dependence
CPT/HCPCS: 36415; 70470; 71045; 80053; 83605; 83735; 85025; 96360; 96361; 99285; J7030; Q9967

== ENCOUNTER 2021-09-04 13:28 | Observation (INO) | payer OTHER, MEDICAID ==
[~2021-09-04] VITALS: Ht 193 cm; Wt 112.2 kg
[~2021-09-04 13:28] MED LIST changes: +CLIN150C16 PO; +HYDR-2761 PO; +NEOM10DR32 RIGHT EAR
--- NOTE | 2021-09-04 14:21 | ED.ADGEN ---
Past Medical History Past Medical History: CAD, High Cholesterol, Hypertension, Renal Disease, Other Additional Past Medical Histor: back pain, gout Past Surgical History: Other Additional Past Surgical Histo: rotator cuff, kidney removed, cardiac stents Smoking Status: Current Every Day Smoker Additional Information: 0.25 PPD Alcohol Use: None Drug Use: None General Adult EDM: Chief Complaint: CHEST PAIN HPI: HPI: Patient is a 65 year old male coming in for 6 days of multiple complaints. Patient states he has been congested, had a cough, has centralized chest pain that is sharp and nonradiating, diarrhea, and rhinorrhea. Patient has had both of his Covid vaccines but not his flu vaccine this year. Unsure if he had pn eumonia vaccination. Patient denies any fevers or chills. Patient states he has 2 stents denies any anticoagulant Review of Systems: Review of Systems: All other systems within normal limits except for as noted in the HPI Current Medications: Current Medications Medications (Trade) Dose Ordered Sig/Tyler Start Time Stop Time Status Last Admin Dose Admin Acetaminophen (Tylenol) 650 mg PRN Q4HRS PRN 09/04/21 17:15 09/05/21 17:14 Fentanyl Citrate (Fentanyl 2ml Vial) 50 mcg PRN Q1HR PRN 09/04/21 17:15 09/05/21 17:14 Nitroglycerin (Nitrostat) 0.4 mg PRN Q5MIN PRN 09/04/21 17:15 09/05/21 17:14 Ondansetron HCl (Zofran) 4 mg PRN Q8HRS PRN 09/04/21 17:15 09/05/21 17:14 Allergies: Allergies: Allergies Coded Allergies Type Severity Reaction Last Updated Verified morphine Allergy Severe Hives 12/20/20 Yes aspirin Allergy Intermediate rash-tolerates baby aspirin 12/20/20 Yes Physical Exam: PE: Constitutional: Well developed, well nourished, no acute distress, non-toxic appearance. [] HENT: Normocephalic, atraumatic, bilateral external ears normal, nose normal. [] Eyes: PERRLA, conjunctiva normal, no discharge. [] Neck: No rigidity, supple, no stridor. [] Cardiovascular: Regular rate and rhythm, brisk cap refill [] Lungs & Thorax: Non labored symmetric respirations, no tachypnea or respiratory distress [] Abdomen: Soft, nondistended. Skin: Warm, dry, no erythema, no rash. [] Back: Unremarkable Extremities: No deformities, range of motion grossly intact, no lower extremity edema [] Neurologic: Alert and oriented X 3, no focal deficits noted. [] Psychologic: Affect normal, judgement normal, mood normal. [] Current Patient Data: Labs: Laboratory Tests Test 09/04/21 13:35 09/04/21 15:41 09/04/21 15:42 White Blood Count 4.5 x10^3/uL (4.0-11.0) Red Blood Count 4.99 x10^6/uL (4.30-5.70) Hemoglobin 13.5 g/dL (13.0-17.5) Hematocrit 41.9 % (39.0-53.0) Mean Corpuscular Volume 84 fL (79-100) Mean Corpuscular Hemoglobin 27 pg (25-35) Mean Corpuscular Hemoglobin Concent 32 g/dL (31-37) Red Cell Distribution Width 17.5 % (11.5-14.5) H Platelet Count 219 x10^3/uL (140-400) Neutrophils (%) (Auto) 48 % (31-73) Lymphocytes (%) (Auto) 35 % (24-48) Monocytes (%) (Auto) 14 % (0-9) H Eosinophils (%) (Auto) 2 % (0-3) Basophils (%) (Auto) 1 % (0-3) Neutrophils # (Auto) 2.2 x10^3/uL (1.8-7.7) Lymphocytes # (Auto) 1.6 x10^3/uL (1.0-4.8) Monocytes # (Auto) 0.7 x10^3/uL (0.0-1.1) Eosinophils # (Auto) 0.1 x10^3/uL (0.0-0.7) Basophils # (Auto) 0.0 x10^3/uL (0.0-0.2) Sodium Level 143 mmol/L (136-145) Potassium Level 4.4 mmol/L (3.5-5.1) Chloride Level 106 mmol/L (98-107) Carbon Dioxide Level 29 mmol/L (21-32) Anion Gap 8 (6-14) Blood Urea Nitrogen 31 mg/dL (8-26) H Creatinine 2.1 mg/dL (0.7-1.3) H Estimated GFR (Cockcroft-Gault) 38.4 BUN/Creatinine Ratio 15 (6-20) Glucose Level 118 mg/dL (70-99) H Calcium Level 9.0 mg/dL (8.5-10.1) Total Bilirubin 0.4 mg/dL (0.2-1.0) Aspartate Amino Transferase (AST) 23 U/L (15-37) Alanine Aminotransferase (ALT) 17 U/L (16-63) Alkaline Phosphatase 115 U/L (46-116) Troponin I Quantitative 0.268 ng/mL (0.000-0.055) Total Protein 7.4 g/dL (6.4-8.2) Albumin 3.3 g/dL (3.4-5.0) L Albumin/Globulin Ratio 0.8 (1.0-1.7) L Influenza Type A Antigen Negative (NEGATIVE) Influenza Type B Antigen Negative (NEGATIVE) SARS-CoV-2 Antigen (Rapid) Negative (NEGATIVE) D-Dimer (Natalie) 0.66 ug/mlFEU (0.00-0.50) H Laboratory Tests 09/04/21 13:35 Laboratory Tests 09/04/21 13:35 Vital Signs: Vital Signs Date Time Temp Pulse Resp B/P (MAP) Pulse Ox O2 Delivery O2 Flow Rate FiO2 09/04/21 15:41 72 19 149/70 (96) 98 Room Air 09/04/21 13:28 97.1 97.1 EKG: EKG: Sinus rhythm, heart rate 60 bpm, no ST elevation or depression, diffuse T wave inversions. [] Heart Score: C/O Chest Pain: Yes HEART Score for Chest Pain: HEART Score for Chest Pain Response (Comments) Value History Slighlty/Non-Suspicious 0 ECG Nonspecific Repolarizatio 1 Age > 65 2 Risk Factors 1 or 2 Risk Factors 1 Troponin >3 x Normal Limit 2 Total 6 Risk Factors: Risk Factors: DM, Current or recent (<one month) smoker, HTN, HLP, family history of CAD, obesity. Risk Scores: Score 0 - 3: 2.5% MACE over next 6 weeks - Discharge Home Score 4 - 6: 20.3% MACE over next 6 weeks - Admit for Clinical Observation Score 7 - 10: 72.7% MACE over next 6 weeks - Early Invasive Strategies Radiology/Procedures: Radiology/Procedures: [facility] [address] [place], [place] [id number] IMAGING REPORT Signed PATIENT: LU KIM EACCOUNT: [id number] : 1955 LOCATION: ER AGE: 65 SEX: M EXAM STATUS: REG ER ORD. PHYSICIAN: DESIRAE MALDONADO MD REASON: chest pain PROCEDURE: CHEST PA & LATERAL AP and Lateral Views of the Chest 09/04/2021 2:35 PM Indication: Reason: chest pain / Comparison: Chest radiograph March 11, 2021 Findings: Interstitial thickening has improved in the interim. Heart size is top normal. No pneumothorax or effusion is seen. No acute osseous changes are identified. IMPRESSION: No evidence of acute cardiopulmonary process. Electronically signed by: Neel Caro MD (09/04/2021 3:00 PM) [id number] DICTATED and SIGNED BY: NEEL CARO MD DATE: 09/04/21 [id number] [] Course & Med Decision Making: Course & Med Decision Making Pertinent Labs and Imaging studies reviewed. (See chart for details) [] Dragon Disclaimer: Dragon Disclaimer: This electronic medical record was generated, in whole or in part, using a voice recognition dictation system. Departure Departure Impression: Primary Impression: NSTEMI (non-ST elevated myocardial infarction) Additional Impression: Renal failure Disposition: ADMITTED INPATIENT Condition: STABLE Referrals: BRADLY FOSS DO (PCP) Problem Qualifiers DESIRAE MALDONADO MD Sep 04, 2021 14:21
[2021-09-04 14:35] LABS: BASO % 1 % (0-3); EOS # 0.1 x10^3/uL (0.0-0.7); EOS % 2 % (0-3); HEMATOCRIT 41.9 % (39.0-53.0); HEMOGLOBIN 13.5 g/dL (13.0-17.5); LYMPH # 1.6 x10^3/uL (1.0-4.8); LYMPH % 35 % (24-48); MEAN CORPUSCULAR HEMOGLOBIN 27 pg (25-35); MEAN CORPUSCULAR HGB CONC 32 g/dL (31-37); MEAN CORPUSCULAR VOLUME 84 fL (79-100); MONO # 0.7 x10^3/uL (0.0-1.1); MONO % 14 % (0-9); NEUT # 2.2 x10^3/uL (1.8-7.7); NEUT % 48 % (31-73); PLATELET COUNT 219 x10^3/uL (140-400); RED BLOOD COUNT 4.99 x10^6/uL (4.30-5.70); RED CELL DISTRIBUTION WIDTH 17.5 % (11.5-14.5); WHITE BLOOD COUNT 4.5 x10^3/uL (4.0-11.0)
[2021-09-04 14:43] LABS: CREATININE 2.1 mg/dL (0.7-1.3); GFR 38.4; POTASSIUM 4.4 mmol/L (3.5-5.1)
[2021-09-04 14:51] LABS: ALBUMIN 3.3 g/dL (3.4-5.0); ALBUMIN/GLOBULIN RATIO 0.8 (1.0-1.7); TOTAL BILIRUBIN 0.4 mg/dL (0.2-1.0); TOTAL PROTEIN 7.4 g/dL (6.4-8.2)
--- NOTE | 2021-09-04 15:02 | RAD ---
AP and Lateral Views of the Chest 09/04/2021 2:35 PM Indication: Reason: chest pain / Comparison: Chest radiograph March 11, 2021 Findings: Interstitial thickening has improved in the interim. Heart size is top normal. No pneumotho rax or effusion is seen. No acute osseous changes are identified. IMPRESSION: No evidence of acute cardiopulmonary process. Electronically signed by: Neel You MD (09/04/2021 3:00 PM) [id number]
[2021-09-04 16:04] LABS: INFLUENZA A PATIENT NEGATIVE (NEGATIVE); INFLUENZA B PATIENT NEGATIVE (NEGATIVE)
[2021-09-04] MEDS ORDERED: fentaNYL PF VIAL 100 MCG/2 ML VIAL IVP PRN (17:15)
[2021-09-04] MEDS ORDERED: ACETAMINOPHEN 325 MG TABLET. PO PRN (17:15)
[2021-09-04] MEDS ORDERED: NITROGLYCERIN SUBLINGUAL 0.4 MG BOTTLE OF 25. SL PRN (17:15)
[2021-09-04] MEDS ORDERED: ONDANSETRON PF 4 MG/2 ML VIAL. IVP PRN (17:15)
[2021-09-04 17:16] LABS: BILIRUBIN,URINE NEGATIVE (NEG); CLARITY,URINE CLEAR; COLOR,URINE YELLOW; NITRITE,URINE NEGATIVE (NEG); PH,URINE 6.5 (<5.0-8.0); PROTEIN,URINE NEGATIVE (NEG-TRACE)
[2021-09-04 17:39] LABS: BACTERIA,URINE FEW /HPF (0-FEW); RBC,URINE 0 /HPF (0-2); WBC,URINE 20-40 /HPF (0-4)
[2021-09-04] MEDS ORDERED: cefTRIAXone IV Push 1 GM VIAL. IVP SCH (19:15)
--- NOTE | 2021-09-04 19:18 | HP ---
DATE OF SERVICE: 09/04/2021 ADMIT DATE: 09/04/2021 CHIEF COMPLAINT: Chest pain. HISTORY OF PRESENT ILLNESS: The patient is a pleasant 65-year-old male who presented to the ER today with chest pain. He has known coronary artery disease, in fact has 2 previous stents. He thinks this might be his heart again. His troponin is elevated at 0.26 while here in the ER, but his creatinine is also high at 2.1. I discussed the case with ER physician. We are going to admit the patient and consult Cardiology. PAST MEDICAL HISTORY: CAD with previous stents. He fell three stories, 22 years ago. He has had multiple fractures, a left nephrectomy and exploratory abdominal surgery because of the fall. He is disabled. MEDICATIONS: Reviewed. Please refer to the MRAD. REVIEW OF SYSTEMS: GENERAL: No history of weight change, weakness or fevers. SKIN: No bruising, hair changes or rashes. EYES: No blurred, double or loss of vision. NOSE AND THROAT: No history of nosebleeds, hoarseness or sore throat. HEART: He complains of chest pain. LUNGS: Denies cough, hemoptysis, wheezing or shortness of breath. GASTROINTESTINAL: Denies changes in appetite, nausea, vomiting, diarrhea or constipation. GENITOURINARY: No history of frequency, urgency, hesitancy or nocturia. NEUROLOGIC: Denies history of numbness, tingling, tremor or weakness. PSYCHIATRIC: No history of panic, anxiety or depression. ENDOCRINE: No history of heat or cold intolerance, polyuria or polydipsia. EXTREMITIES: Denies muscle weakness, joint pain, pain on walking or stiffness. . PHYSICAL EXAMINATION: VITALS: Within normal limits and are stable. GENERAL: No apparent distress. Alert and oriented. HEENT: Normal cephalic atraumatic, external auditory canals are patent. EYES: Extraocular muscles are intact, pupils are equally round and reactive to light and accommodation. MUSCULOSKELETAL: Well developed, well nourished, good range of motion. ENDOCRINE: No thyromegaly was palpated. LYMPHATICS: No cervical chain or axillary nodes were noted. HEMATOPOIETIC: No bruising. NECK: Supple, no JVD, no thyromegaly was noted. LUNGS: Clear to auscultation in all lung carbone without rhonchi or wheezing. HEART: RRR, S1, S2 present. Peripheral pulses intact, no obvious murmurs were noted. ABDOMEN: He has several old incisions consistent with his exploratory laparotomy and left nephrectomy. EXTREMITIES: The right shoulder has some old surgical changes and both feet have some old surgical changes. NEUROLOGIC: Normal speech, normal tone. A and O x 3, moves all extremities, no obvious focal deficits. PSYCHIATRIC: Normal affect, normal mood. Stable. SKIN: No ulcerations or rashes, good skin turgor, no jaundice. VASCULAR: Good capillary refill, neurovascular bundle appears to be intact. LABORATORY DATA: White count is 4. Troponin is 0.26, creatinine 2.1. Urinalysis shows moderate leukocyte esterase with 20-40 white cells. D-dimer 0.66. COVID testing is negative. Chest x-ray negative. ASSESSMENT AND PLAN: Chest pain, chronic renal insufficiency, slightly elevated D-dimer, elevated troponin, urinary tract infection. The patient has been admitted. We will consult Cardiology. Cardiac monitoring, serial enzymes, serial EKGs, IV antibiotics, home meds. DVT prophylaxis. Full code. Consult Nephrology. JERRY/MABLE DR: JERRY/shelia TID: [id number]
[2021-09-04 20:20] VITALS: BP 169/95
--- NOTE | 2021-09-04 20:20 | NUR ---
The patient, LU KIM, 65 y/o, M admitted by ISAAC AVILA III, DO, was given written information regarding hospital policies, unit procedures and contact persons. Pt arrived to room per wheel chair pt ambulated to restroom with standby assist pt oriented to surroundings and call light poc explained to pt. Vs obtained and stable pt c/o reproducible chest pain will monitor pt and resume care.
[2021-09-04 22:33] VITALS: BP 153/83
[2021-09-04] MEDS ORDERED: DULO30CA2 PO (23:06)
[2021-09-04] MEDS ORDERED: ASPI81TA59 PO (23:06)
[2021-09-04] MEDS ORDERED: PROM5SYR2 PO (23:06)
[2021-09-04] MEDS ORDERED: TAMS0.4C97 PO (23:06)
[2021-09-04] MEDS ORDERED: guaiFENesin/CODEINE 100mg/10mg 5 ML LIQUID PO PRN (23:30)
[2021-09-04] MEDS ORDERED: CYCLOBENZAPRINE 10 MG TABLET. PO PRN (23:30)
[2021-09-05] MEDS ORDERED: CYCLOBENZAPRINE 10 MG TABLET. PO SCH
[2021-09-05 02:03] VITALS: BP 160/94
[2021-09-05 06:30] VITALS: BP 161/96
[2021-09-05] MEDS ORDERED: CARVEDILOL 12.5 MG TABLET. PO SCH (08:00)
[2021-09-05 08:29] LABS: BASO % 1 % (0-3); EOS # 0.1 x10^3/uL (0.0-0.7); EOS % 3 % (0-3); HEMATOCRIT 41.8 % (39.0-53.0); HEMOGLOBIN 12.8 g/dL (13.0-17.5); LYMPH # 1.8 x10^3/uL (1.0-4.8); LYMPH % 45 % (24-48); MEAN CORPUSCULAR HEMOGLOBIN 27 pg (25-35); MEAN CORPUSCULAR HGB CONC 31 g/dL (31-37); MONO # 0.5 x10^3/uL (0.0-1.1); MONO % 12 % (0-9); NEUT # 1.6 x10^3/uL (1.8-7.7); NEUT % 40 % (31-73); PLATELET COUNT 165 x10^3/uL (140-400); RED CELL DISTRIBUTION WIDTH 18.3 % (11.5-14.5)
[2021-09-05 08:33] LABS: MEAN CORPUSCULAR VOLUME 88 fL (79-100)
[2021-09-05 08:58] LABS: CALCIUM 8.5 mg/dL (8.5-10.1); CREATININE 1.5 mg/dL (0.7-1.3); GFR 56.7; POTASSIUM 4.6 mmol/L (3.5-5.1)
[2021-09-05] MEDS ORDERED: ASPIRIN CHEWABLE 81 MG TABLET. PO SCH (09:00)
[2021-09-05] MEDS ORDERED: DULoxetine HCL 30 MG CAPSULE.DR PO SCH (09:00)
[2021-09-05] MEDS ORDERED: FUROSEMIDE 40 MG TABLET. PO SCH (09:00)
[2021-09-05] MEDS ORDERED: LOSARTAN POTASSIUM 50 MG TABLET. PO SCH (09:00)
[2021-09-05] MEDS ORDERED: OXYBUTYNIN CHLORIDE 5 MG TABLET PO SCH (09:00)
--- NOTE | 2021-09-05 09:22 | PDOC2 ---
SERGIO AGUILERA PAINT SPRAY INSPECTOR 09/05/21 0922: CARDIAC CONSULT DATE OF CONSULT Date of Consult DATE: 09/05/21 TIME: 08:59 REASON FOR CONSULT Reason for Consult: Chest pain REFERRING PHYSICIAN Referring Physician: Chi SOURCE Source: Chart review, Patient HISTORY OF PRESENT ILLNESS HISTORY OF PRESENT ILLNESS This is a pleasant 65 yo male admitted for complains of chest pain. This chest pain is easily reproducible with palpation and described it as poking discomfort intermittent since he fell 2-3 weeks ago to which he was hospitalized at [facility]. He is unclear about having elevated troponin but reported having stress test at that time. Reported that he passed out hence he fell at that time. No apparent injury. No nausea or vomiting had some loose stools yesterday but no abdominal pain. No fever or chills he is fully vaccinated for covid-19. He continues to use cocaine with last use 2 weeks ago. He is known for chronic fatigue, NICM with recovered EF last known at 45%. No orthopnea or PND. PAST MEDICAL HISTORY Cardiovascular: CHF, HTN, Syncope, Hyperlipidemia, Other (NICM) Pulmonary: COPD CENTRAL NERVOUS SYSTEM: Other (No pertinent history) GI: No pertinent hx Heme/Onc: Anemia NOS Hepatobiliary: No pertinent hx Psych: No pertinent hx Musculoskeletal: low back pain, Osteoarthritis Rheumatologic: Other (chronic fatigue) Infectious disease: No pertinent hx ENT: Sincusitis Renal/: Chronic renal insuff, UTI, Benign prostatic enlarg., Urinary Incontinence PAST SURGICAL HISTORY Past Surgical History: Other (left nephrectomy due to trauma, LHC, ureteral stenting) FAMILY HISTORY Family History: Heart Disease SOCIAL HISTORY Smoke: Quit ALCOHOL: none Drugs: Cocaine Lives: with Family CURRENT MEDICATIONS CURRENT MEDICATIONS Current Medications Medications (Trade) Dose Ordered Sig/Tyler Route PRN Reason Start Time Stop Time Status Last Admin Dose Admin Fentanyl Citrate (Fentanyl 2ml Vial) 50 mcg PRN Q1HR PRN IVP PAIN 09/04/21 17:15 09/05/21 17:14 09/05/21 02:01 Ceftriaxone Sodium (Rocephin) 1 gm Q24H IVP 09/04/21 19:15 09/04/21 22:04 Aspirin (Aspirin Chewable) 81 mg DAILY PO 09/05/21 09:00 09/05/21 08:37 Duloxetine HCl (Cymbalta) 30 mg DAILY PO 09/05/21 09:00 09/05/21 08:37 Furosemide (Lasix) 40 mg DAILY PO 09/05/21 09:00 09/05/21 08:37 Losartan Potassium (Cozaar) 100 mg DAILY PO 09/05/21 09:00 09/05/21 08:37 Carvedilol (Coreg) 25 mg BIDWMEALS PO 09/05/21 08:00 09/05/21 08:38 Oxybutynin Chloride (Ditropan) 5 mg BID PO 09/05/21 09:00 09/05/21 08:37 Cyclobenzaprine HCl (Flexeril) 10 mg PRN TID PRN PO MUSCLE SPASMS 09/04/21 23:30 09/05/21 02:01 ALLERGIES ALLERGIES: Coded Allergies: morphine (Verified Allergy, Severe, Hives, 12/20/20) aspirin (Verified Allergy, Intermediate, rash-tolerates baby aspirin, 12/20/20) ROS Review of System 14 point ROS evaluated with pertinent positives noted per HPI PHYSICAL EXAM General: Alert, Oriented X3, Cooperative, No acute distress HEENT: Atraumatic, Mucous membr. moist/pink Lungs: Clear to auscultation, Normal air movement Heart: Regular rate (SR/), Normal S1, Normal S2, No murmurs Abdomen: Soft, No tenderness Extremities: No cyanosis, No edema Skin: No breakdown, No significant lesion Neuro: Normal speech, Sensation intact Psych/Mental Status: Mental status NL, Mood NL MUSCULOSKELETAL: Osteoarthritic changes both hands VITALS/I&O VITALS/I&O: Vital Signs Date Time Temp Pulse Resp B/P (MAP) Pulse Ox O2 Delivery O2 Flow Rate FiO2 09/05/21 08:38 54 161/96 09/05/21 06:30 97.3 18 100 Room Air 97.3 I & O 09/04/21 09/04/21 09/05/21 15:00 23:00 07:00 Intake Total 300 ml 420 ml Output Total 1300 ml Balance 300 ml -880 ml LABS Lab: Laboratory Tests Test 09/04/21 13:35 09/04/21 15:41 09/04/21 15:42 09/04/21 17:06 White Blood Count 4.5 x10^3/uL (4.0-11.0) Red Blood Count 4.99 x10^6/uL (4.30-5.70) Hemoglobin 13.5 g/dL (13.0-17.5) Hematocrit 41.9 % (39.0-53.0) Mean Corpuscular Volume 84 fL (79-100) Mean Corpuscular Hemoglobin 27 pg (25-35) Mean Corpuscular Hemoglobin Concent 32 g/dL (31-37) Red Cell Distribution Width 17.5 % (11.5-14.5) H Platelet Count 219 x10^3/uL (140-400) Neutrophils (%) (Auto) 48 % (31-73) Lymphocytes (%) (Auto) 35 % (24-48) Monocytes (%) (Auto) 14 % (0-9) H Eosinophils (%) (Auto) 2 % (0-3) Basophils (%) (Auto) 1 % (0-3) Neutrophils # (Auto) 2.2 x10^3/uL (1.8-7.7) Lymphocytes # (Auto) 1.6 x10^3/uL (1.0-4.8) Monocytes # (Auto) 0.7 x10^3/uL (0.0-1.1) Eosinophils # (Auto) 0.1 x10^3/uL (0.0-0.7) Basophils # (Auto) 0.0 x10^3/uL (0.0-0.2) Sodium Level 143 mmol/L (136-145) Potassium Level 4.4 mmol/L (3.5-5.1) Chloride Level 106 mmol/L (98-107) Carbon Dioxide Level 29 mmol/L (21-32) Anion Gap 8 (6-14) Blood Urea Nitrogen 31 mg/dL (8-26) H Creatinine 2.1 mg/dL (0.7-1.3) H Estimated GFR (Cockcroft-Gault) 38.4 BUN/Creatinine Ratio 15 (6-20) Glucose Level 118 mg/dL (70-99) H Calcium Level 9.0 mg/dL (8.5-10.1) Total Bilirubin 0.4 mg/dL (0.2-1.0) Aspartate Amino Transferase (AST) 23 U/L (15-37) Alanine Aminotransferase (ALT) 17 U/L (16-63) Alkaline Phosphatase 115 U/L (46-116) Troponin I Quantitative 0.268 ng/mL (0.000-0.055) Total Protein 7.4 g/dL (6.4-8.2) Albumin 3.3 g/dL (3.4-5.0) L Albumin/Globulin Ratio 0.8 (1.0-1.7) L Influenza Type A Antigen Negative (NEGATIVE) Influenza Type B Antigen Negative (NEGATIVE) SARS-CoV-2 RNA (SU) Negative (Negative) SARS-CoV-2 Antigen (Rapid) Negative (NEGATIVE) D-Dimer (Natalie) 0.66 ug/mlFEU (0.00-0.50) H Urine Collection Type Unknown Urine Color Yellow Urine Clarity Clear Urine pH 6.5 (<5.0-8.0) Urine Specific [place] 1.025 (1.000-1.030) Urine Protein Negative mg/dL (NEG-TRACE) Urine Glucose (UA) Negative mg/dL (NEG) Urine Ketones (Stick) Negative mg/dL (NEG) Urine Blood Negative (NEG) Urine Nitrite Negative (NEG) Urine Bilirubin Negative (NEG) Urine Urobilinogen Dipstick 1.0 mg/dL (0.2 mg/dL) Urine Leukocyte Esterase Moderate (NEG) Urine RBC 0 /HPF (0-2) Urine WBC 20-40 /HPF (0-4) Urine Squamous Epithelial Cells Mod /LPF Urine Bacteria Few /HPF (0-FEW) Urine Mucus Slight /LPF Test 09/04/21 20:30 09/04/21 22:50 09/05/21 07:35 Troponin I Quantitative 0.270 ng/mL (0.000-0.055) 0.250 ng/mL (0.000-0.055) White Blood Count 4.0 x10^3/uL (4.0-11.0) Red Blood Count 4.70 x10^6/uL (4.30-5.70) Hemoglobin 12.8 g/dL (13.0-17.5) L Hematocrit 41.8 % (39.0-53.0) Mean Corpuscular Volume 88 fL (79-100) Mean Corpuscular Hemoglobin 27 pg (25-35) Mean Corpuscular Hemoglobin Concent 31 g/dL (31-37) Red Cell Distribution Width 18.3 % (11.5-14.5) H Platelet Count 165 x10^3/uL (140-400) Neutrophils (%) (Auto) 40 % (31-73) Lymphocytes (%) (Auto) 45 % (24-48) Monocytes (%) (Auto) 12 % (0-9) H Eosinophils (%) (Auto) 3 % (0-3) Basophils (%) (Auto) 1 % (0-3) Neutrophils # (Auto) 1.6 x10^3/uL (1.8-7.7) L Lymphocytes # (Auto) 1.8 x10^3/uL (1.0-4.8) Monocytes # (Auto) 0.5 x10^3/uL (0.0-1.1) Eosinophils # (Auto) 0.1 x10^3/uL (0.0-0.7) Basophils # (Auto) 0.0 x10^3/uL (0.0-0.2) Laboratory Tests 09/04/21 13:35 09/05/21 07:35 Laboratory Tests 09/04/21 13:35 ECHOCARDIOGRAM ECHOCARDIOGRAM 10/08/2020 [facility] The left ventricle is mildly dilated. Mild concentric hypertrophy. The left ventricular systolic function is mildly reduced. The visually estimated ejection fraction is 45%. There is diffuse hypokinesis. The right ventricle is mildly dilated. The right ventricular systolic function is normal. Mild biatrial enlargement. No hemodynamically significant valve disease. Estimated Peak Systolic PA Pressure 26 mmHg No pericardial effusion. Compared with study dated 11/15/19, no significant change is noted. HEART CATH HEART CATH PROCEDURES PERFORMED: [facility] Left heart catheterization. Selective left and right coronary angiography. INDICATION: Congestive heart failure. PROCEDURE NARRATIVE: Informed consent was obtained. The patient was brought to the cardiac catheterization lab and placed on the fluoroscopy table in a supine position. The patient was then positioned, prepped, and draped in the standard sterile fashion. Conscious sedation was administered with midazolam and fentanyl. Local anesthesia was administered to the right wrist. The right radial artery was accessed using modified Seldinger technique and a 6-Romanian arterial sheath was placed. Radial vasodilatory medications (verapamil, nitroglycerin) and IV heparin were administered after access was obtained. A [place] 4 catheter was used to perform left heart catheterization, selective left coronary angiography, and selective right coronary angiography. All catheter exchanges were performed over a 0.035-inch guidewire. At the conclusion of the case, all equipment was removed and hemostasis was obtained at the right wrist via a TR Band. CORONARY ANATOMY: Left main: This is a large caliber vessel. It trifurcates into the left anterior descending, ramus intermedius, and left circumflex branches. It is angiographically normal, 0% stenosis. Left anterior descending: The proximal segment of this vessel demonstrates mild luminal irregularities. The mid to distal segment of this vessel appears angiographically normal, 0% stenosis. The LAD reaches the apex. Left circumflex: This is a dominant system that gives rise to 2 early, large caliber OM branches. The circumflex system is angiographically normal, 0% stenosis. Ramus intermedius: This vessel is angiographically normal, 0% stenosis. RCA: This is a dominant system that gives rise to a PDA branch. This is angiographically normal, 0% stenosis. HEMODYNAMIC FINDINGS: AO: 147/85/110 LVEDP: 12 mmHg. There is no gradient across the aortic valve on catheter pullback. CONTRAST: Visipaque-320, 60 mL. FLUOROSCOPY TIME: 1.7 minutes. AIR KERMA TOTAL: 478 mGy. MEDICATION SUMMARY: 1% lidocaine 2 mL, fentanyl 50 mcg, heparin 6000 units, nitroglycerin 200 mcg, verapamil 2.5 mg, versed 1 mg. CONCLUSION: Mild, nonobstructive coronary artery disease involving the proximal LAD. RECOMMENDATIONS: Standard post catheterization care. Optimization of medical therapy to prevent future cardiovascular events. 06/16/2019 ASSESSMENT/PLAN ASSESSMENT/PLAN 1. Atypical CP: MSK reproducible 2. Mild troponin elevation: no acute EKG changes. likely demand mediated with continued use of cocaine 3. Cocaine abuse 4. Prior syncope and nontraumatic fall: 2-3 weeks ago admitted at , MPI was done 5. NICM: last known EF at 45% 6. Chronic systolic CHF: compensated 7. COPD 8. HTN: labile 9. SERAFIN on CKD3 with hx of left nephrectomy 10. HLP Recommendations 1. Obtain TTE and MPI done about 3 weeks ago 2. Obtain UDS 3. Hold diuretic therapy. Continue secondary prevention measures. Restart BP meds. He is not allergic to ASA as this is part of his regimen 4. Lifestyle modification 5. Follow up with cardiology RAGHU DAVIS MD 09/05/21 5104: CARDIAC CONSULT ASSESSMENT/PLAN ASSESSMENT/PLAN Patient seen and examined. Agree with above nurse practitioner note. I discussed with the patient and reviewed his recent records. He did not have a myocardial perfusion study. His echocardiogram demonstrated chronic systolic dysfunction. He has cocaine in his system and it is unclear whether he has had good follow-up through his primary facility at [facility]. At this present time would reinitiate his heart failure regimen and with losartan Lasix as per nephrology notes. Continue carvedilol and aspirin. Supportive care for now from a cardiac standpoint. He likely merits outpatient ischemic evaluation if he is able to refrain from drug abuse and maintains follow-up. Thank you for this consultation. We will follow along closely. SERGIO AGUILERA APRN Sep 05, 2021 09:22 RAGHU DAVIS MD Sep 05, 2021 18:34
[2021-09-05 10:10] VITALS: BP 151/90
[2021-09-05 10:10] LABS: BARBITURATES NEG (NEG); BENZODIAZEPINES NEG (NEG); CANNABINOIDS NEG (NEG); COCAINE POS (NEG); METHADONE NEG (NEG); OPIATES NEG (NEG); PHENCYCLIDINE NEG (NEG)
[2021-09-05 10:11] LABS: AMPHETAMINE/METHAMPHETAMINE NEG (NEG)
--- NOTE | 2021-09-05 10:14 | PDOC2 ---
CONSULT Date of Consult Date of Consult DATE: 09/05/21 TIME: 10:14 Reason for Consult Reason for Consult: SERAFIN Source Source: Chart review, Patient History of Present Illness Reason for Visit: Patient is a 65 year old AA male coming in for 6 days of multiple complaints. Patient states he has been congested, had a cough, has centralized chest pain that is sharp and nonradiating, diarrhea, and rhinorrhea. Patient has had both of his Covid vaccines but not his flu vaccine this year. Unsure if he had pneumonia vaccination. Patient denies any fevers or chills. 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 Novoa at -patient is not aware of any abnormal Cr or Dx of CKD, doesn't follow with rn assessment . He states he has been having diarrhea Off and on for 3-4 months, had colonoscopy in the past. Denies N/V. No abdominal pain. Denies F/C. Denies any urinary complaints . Denies use of NSAID's or any OTC supplements. R eports he was started on Lasix approx 1 month ago for some LE edema . Currently denies any edema His chest pain is reproducible with palpatio and he noted since he fell 2-3 weeks ago for hich he was hospitalized at [facility]. He continues to use cocaine with last use 2 -3 weeks ago. He is known for chronic fatigue, NICM with recovered EF last known at 45%. No orthopnea or PND. Past Medical History Cardiovascular: CHF, HTN, Syncope, Hyperlipidemia, Other (NICM) Pulmonary: COPD CENTRAL NERVOUS SYSTEM: Other (No pertinent history) GI: No pertinent hx Heme/Onc: Anemia NOS Hepatobiliary: No pertinent hx Psych: No pertinent hx Musculoskeletal: low back pain, Osteoarthritis Rheumatologic: Other (chronic fatigue) Infectious disease: No pertinent hx ENT: Sincusitis Renal/: Chronic renal insuff, UTI, Benign prostatic enlarg., Urinary Incontinence Past Surgical History Past Surgical History Lt Nephrectomy 2/2 Trauma , Ureteral stent Past Surgical History: Other (left nephrectomy due to trauma, LHC, ureteral stenting) Family History Family History: Heart Disease Social History Quit ALCOHOL: none Drugs: Cocaine Lives: with Family Current Problem List Problem List Problems Medical Problems: (1) NSTEMI (non-ST elevated myocardial infarction) Status: Acute (2) Renal failure Status: Acute Current Medications Current Medications Current Medications Ondansetron HCl (Zofran) 4 mg PRN Q8HRS PRN IVP NAUSEA/VOMITING; Start 09/04/21 at 17:15; Stop 09/05/21 at 17:14 Fentanyl Citrate (Fentanyl 2ml Vial) 50 mcg PRN Q1HR PRN IVP PAIN Last administered on 09/05/21at 02:01; Start 09/04/21 at 17:15; Stop 09/05/21 at 17:14 Acetaminophen (Tylenol) 650 mg PRN Q4HRS PRN PO FEVER > 100.3'F; Start 09/04/21 at 17:15; Stop 09/05/21 at 17:14 Nitroglycerin (Nitrostat) 0.4 mg PRN Q5MIN PRN SL CHEST PAIN; Start 09/04/21 at 17:15; Stop 09/05/21 at 17:14 Ceftriaxone Sodium (Rocephin) 1 gm Q24H IVP Last administered on 09/04/21at 22:04; Start 09/04/21 at 19:15 Aspirin (Aspirin Chewable) 81 mg DAILY PO Last administered on 09/05/21at 08:37; Start 09/05/21 at 09:00 Cyclobenzaprine HCl (Flexeril) 10 mg TID PO ; Start 09/05/21 at 00:00; Stop 09/04/21 at 23:23; Status DC Duloxetine HCl (Cymbalta) 30 mg DAILY PO Last administered on 09/05/21at 08:37; Start 09/05/21 at 09:00 Furosemide (Lasix) 40 mg DAILY PO Last administered on 09/05/21at 08:37; Start 09/05/21 at 09:00 Losartan Potassium (Cozaar) 100 mg DAILY PO Last administered on 09/05/21at 08:37; Start 09/05/21 at 09:00 Atorvastatin Calcium (Lipitor) 80 mg QHS PO ; Start 09/05/21 at 21:00 Carvedilol (Coreg) 25 mg BIDWMEALS PO Last administered on 09/05/21at 08:38; Start 09/05/21 at 08:00 Oxybutynin Chloride (Ditropan) 5 mg BID PO Last administered on 09/05/21at 08:37; Start 09/05/21 at 09:00 Guaifenesin/ Codeine Phosphate (Robitussin Ac) 5 ml PRN Q6HRS PRN PO COUGH; Start 09/04/21 at 23:30 Cyclobenzaprine HCl (Flexeril) 10 mg PRN TID PRN PO MUSCLE SPASMS Last administered on 09/05/21at 02:01; Start 09/04/21 at 23:30 Lactobacillus Rhamnosus (Culturelle) 1 cap BID PO ; Start 09/05/21 at 21:00 Active Scripts Active Reported Prometh-Codein 6.25-10 mg/5 ml (Promethazine HCl/Codeine) 5 Ml Syrup 5 Ml PO PRN Q6HRS PRN MDD 30 Milliliter(s) Cymbalta (Duloxetine Hcl) 30 Mg Capsule.dr 1 Cap PO DAILY Flomax (Tamsulosin Hcl) 0.4 Mg Cap.er.24h 1 Cap PO DAILY Children's Aspirin (Aspirin) 81 Mg Tab.chew 1 Tab PO DAILY 30 Days Lasix (Furosemide) 40 Mg Tablet 40 Mg PO DAILY Oxybutynin Chloride Er (Oxybutynin Chloride) 10 Mg Tab.er.24 10 Mg PO DAILY Carvedilol 25 Mg Tablet 25 Mg PO BIDWMEALS Lipitor (Atorvastatin Calcium) 80 Mg Tablet 80 Mg PO DAILY Losartan Potassium 50 Mg Tablet 100 Mg PO DAILY Cyclobenzaprine Hcl 10 Mg Tablet 1 Tab PO TID LAST DOSE GIVEN: DATE:08-23-15 TIME: 2:00 p.m. NEXT DOSE DUE: DATE:08-23-15 TIME:9:00 p.m. Allergies Allergies: Coded Allergies: morphine (Verified Allergy, Severe, Hives, 12/20/20) aspirin (Verified Allergy, Intermediate, rash-tolerates baby aspirin, 12/20/20) ROS Review of System As per HPI, rest of the ROS is negative Physical Exam Physical Exam General: No acute distress HEENT: Atraumatic, Mucous membr. moist/pink Neck Supple Lungs: Clear to auscultation,non labored Heart: Regular rate (SR/), Normal S1, Normal S2, No murmurs Abdomen: Soft, No tenderness Extremities: No cyanosis, No edema Skin: No breakdown, No rash Neuro: Grossly normal Psych/Mental Status: Mental status NL, Mood NL No jerome, No CVA or SP tenderness Vital Signs Vital Signs Date Time Temp Pulse Resp B/P (MAP) Pulse Ox O2 Delivery O2 Flow Rate FiO2 09/05/21 10:10 96.9 73 18 151/90 (110) 98 Room Air 96.9 Assessment & Plan SERAFIN - Vasomotor , Solitary Kidney, recent Lasix .Baseline unknown to patient , never seen Nephrology . Creat trending down, E Lytes stable. Supportive care, maintain hydration , avoid nephrotoxins , I/o . On Losartan and Lasix , continue if Kidney function improving History of left nephrectomy- Follows with urology at Chest Pain: MSK reproducible per cardiology Cocaine abuse- UDS positive Prior syncope and nontraumatic fall: 2-3 weeks ago admitted at , MPI was done NICM: last known EF at 45% Chronic systolic CHF: compensated COPD HTN: labile 10. HLP Recommendations 1. Obtain TTE and MPI done about 3 weeks ago 2. Obtain UDS 3. Hold diuretic therapy. Continue secondary prevention measures. Restart BP meds. He is not allergic to ASA as this is part of his regimen 4. Lifestyle modification 5. Follow up with cardiology Labs Labs Laboratory Tests Test 09/04/21 13:35 09/04/21 15:41 09/04/21 15:42 09/04/21 17:06 White Blood Count 4.5 x10^3/uL (4.0-11.0) Red Blood Count 4.99 x10^6/uL (4.30-5.70) Hemoglobin 13.5 g/dL (13.0-17.5) Hematocrit 41.9 % (39.0-53.0) Mean Corpuscular Volume 84 fL (79-100) Mean Corpuscular Hemoglobin 27 pg (25-35) Mean Corpuscular Hemoglobin Concent 32 g/dL (31-37) Red Cell Distribution Width 17.5 % (11.5-14.5) Platelet Count 219 x10^3/uL (140-400) Neutrophils (%) (Auto) 48 % (31-73) Lymphocytes (%) (Auto) 35 % (24-48) Monocytes (%) (Auto) 14 % (0-9) Eosinophils (%) (Auto) 2 % (0-3) Basophils (%) (Auto) 1 % (0-3) Neutrophils # (Auto) 2.2 x10^3/uL (1.8-7.7) Lymphocytes # (Auto) 1.6 x10^3/uL (1.0-4.8) Monocytes # (Auto) 0.7 x10^3/uL (0.0-1.1) Eosinophils # (Auto) 0.1 x10^3/uL (0.0-0.7) Basophils # (Auto) 0.0 x10^3/uL (0.0-0.2) Sodium Level 143 mmol/L (136-145) Potassium Level 4.4 mmol/L (3.5-5.1) Chloride Level 106 mmol/L (98-107) Carbon Dioxide Level 29 mmol/L (21-32) Anion Gap 8 (6-14) Blood Urea Nitrogen 31 mg/dL (8-26) Creatinine 2.1 mg/dL (0.7-1.3) Estimated GFR (Cockcroft-Gault) 38.4 BUN/Creatinine Ratio 15 (6-20) Glucose Level 118 mg/dL (70-99) Calcium Level 9.0 mg/dL (8.5-10.1) Total Bilirubin 0.4 mg/dL (0.2-1.0) Aspartate Amino Transf (AST/SGOT) 23 U/L (15-37) Alanine Aminotransferase (ALT/SGPT) 17 U/L (16-63) Alkaline Phosphatase 115 U/L (46-116) Troponin I Quantitative 0.268 ng/mL (0.000-0.055) Total Protein 7.4 g/dL (6.4-8.2) Albumin 3.3 g/dL (3.4-5.0) Albumin/Globulin Ratio 0.8 (1.0-1.7) Influenza Type A Antigen Negative (NEGATIVE) Influenza Type B Antigen Negative (NEGATIVE) SARS-CoV-2 RNA (SU) Negative (Negative) SARS-CoV-2 Antigen (Rapid) Negative (NEGATIVE) D-Dimer (Natalie) 0.66 ug/mlFEU (0.00-0.50) Urine Collection Type Unknown Urine Color Yellow Urine Clarity Clear Urine pH 6.5 (<5.0-8.0) Urine Specific [place] 1.025 (1.000-1.030) Urine Protein Negative mg/dL (NEG-TRACE) Urine Glucose (UA) Negative mg/dL (NEG) Urine Ketones (Stick) Negative mg/dL (NEG) Urine Blood Negative (NEG) Urine Nitrite Negative (NEG) Urine Bilirubin Negative (NEG) Urine Urobilinogen Dipstick 1.0 mg/dL (0.2 mg/dL) Urine Leukocyte Esterase Moderate (NEG) Urine RBC 0 /HPF (0-2) Urine WBC 20-40 /HPF (0-4) Urine Squamous Epithelial Cells Mod /LPF Urine Bacteria Few /HPF (0-FEW) Urine Mucus Slight /LPF Test 09/04/21 20:30 09/04/21 22:50 09/05/21 07:35 09/05/21 09:45 Troponin I Quantitative 0.270 ng/mL (0.000-0.055) 0.250 ng/mL (0.000-0.055) White Blood Count 4.0 x10^3/uL (4.0-11.0) Red Blood Count 4.70 x10^6/uL (4.30-5.70) Hemoglobin 12.8 g/dL (13.0-17.5) Hematocrit 41.8 % (39.0-53.0) Mean Corpuscular Volume 88 fL (79-100) Mean Corpuscular Hemoglobin 27 pg (25-35) Mean Corpuscular Hemoglobin Concent 31 g/dL (31-37) Red Cell Distribution Width 18.3 % (11.5-14.5) Platelet Count 165 x10^3/uL (140-400) Neutrophils (%) (Auto) 40 % (31-73) Lymphocytes (%) (Auto) 45 % (24-48) Monocytes (%) (Auto) 12 % (0-9) Eosinophils (%) (Auto) 3 % (0-3) Basophils (%) (Auto) 1 % (0-3) Neutrophils # (Auto) 1.6 x10^3/uL (1.8-7.7) Lymphocytes # (Auto) 1.8 x10^3/uL (1.0-4.8) Monocytes # (Auto) 0.5 x10^3/uL (0.0-1.1) Eosinophils # (Auto) 0.1 x10^3/uL (0.0-0.7) Basophils # (Auto) 0.0 x10^3/uL (0.0-0.2) Sodium Level 141 mmol/L (136-145) Potassium Level 4.6 mmol/L (3.5-5.1) Chloride Level 107 mmol/L (98-107) Carbon Dioxide Level 23 mmol/L (21-32) Anion Gap 11 (6-14) Blood Urea Nitrogen 26 mg/dL (8-26) Creatinine 1.5 mg/dL (0.7-1.3) Estimated GFR (Cockcroft-Gault) 56.7 Glucose Level 89 mg/dL (70-99) Calcium Level 8.5 mg/dL (8.5-10.1) Urine Opiates Screen Neg (NEG) Urine Methadone Screen Neg (NEG) Urine Barbiturates Neg (NEG) Urine Phencyclidine Screen Neg (NEG) Urine Amphetamine/Methamphetamine Neg (NEG) Urine Benzodiazepines Screen Neg (NEG) Urine Cocaine Screen Pos (NEG) Urine Cannabinoids Screen Neg (NEG) Urine Ethyl Alcohol Neg (NEG) Laboratory Tests Test 09/04/21 13:35 09/04/21 15:41 09/04/21 15:42 09/04/21 17:06 White Blood Count 4.5 x10^3/uL (4.0-11.0) Red Blood Count 4.99 x10^6/uL (4.30-5.70) Hemoglobin 13.5 g/dL (13.0-17.5) Hematocrit 41.9 % (39.0-53.0) Mean Corpuscular Volume 84 fL (79-100) Mean Corpuscular Hemoglobin 27 pg (25-35) Mean Corpuscular Hemoglobin Concent 32 g/dL (31-37) Red Cell Distribution Width 17.5 % (11.5-14.5) Platelet Count 219 x10^3/uL (140-400) Neutrophils (%) (Auto) 48 % (31-73) Lymphocytes (%) (Auto) 35 % (24-48) Monocytes (%) (Auto) 14 % (0-9) Eosinophils (%) (Auto) 2 % (0-3) Basophils (%) (Auto) 1 % (0-3) Neutrophils # (Auto) 2.2 x10^3/uL (1.8-7.7) Lymphocytes # (Auto) 1.6 x10^3/uL (1.0-4.8) Monocytes # (Auto) 0.7 x10^3/uL (0.0-1.1) Eosinophils # (Auto) 0.1 x10^3/uL (0.0-0.7) Basophils # (Auto) 0.0 x10^3/uL (0.0-0.2) Sodium Level 143 mmol/L (136-145) Potassium Level 4.4 mmol/L (3.5-5.1) Chloride Level 106 mmol/L (98-107) Carbon Dioxide Level 29 mmol/L (21-32) Anion Gap 8 (6-14) Blood Urea Nitrogen 31 mg/dL (8-26) Creatinine 2.1 mg/dL (0.7-1.3) Estimated GFR (Cockcroft-Gault) 38.4 BUN/Creatinine Ratio 15 (6-20) Glucose Level 118 mg/dL (70-99) Calcium Level 9.0 mg/dL (8.5-10.1) Total Bilirubin 0.4 mg/dL (0.2-1.0) Aspartate Amino Transf (AST/SGOT) 23 U/L (15-37) Alanine Aminotransferase (ALT/SGPT) 17 U/L (16-63) Alkaline Phosphatase 115 U/L (46-116) Troponin I Quantitative 0.268 ng/mL (0.000-0.055) Total Protein 7.4 g/dL (6.4-8.2) Albumin 3.3 g/dL (3.4-5.0) Albumin/Globulin Ratio 0.8 (1.0-1.7) Influenza Type A Antigen Negative (NEGATIVE) Influenza Type B Antigen Negative (NEGATIVE) SARS-CoV-2 RNA (SU) Negative (Negative) SARS-CoV-2 Antigen (Rapid) Negative (NEGATIVE) D-Dimer (Natalie) 0.66 ug/mlFEU (0.00-0.50) Urine Collection Type Unknown Urine Color Yellow Urine Clarity Clear Urine pH 6.5 (<5.0-8.0) Urine Specific [place] 1.025 (1.000-1.030) Urine Protein Negative mg/dL (NEG-TRACE) Urine Glucose (UA) Negative mg/dL (NEG) Urine Ketones (Stick) Negative mg/dL (NEG) Urine Blood Negative (NEG) Urine Nitrite Negative (NEG) Urine Bilirubin Negative (NEG) Urine Urobilinogen Dipstick 1.0 mg/dL (0.2 mg/dL) Urine Leukocyte Esterase Moderate (NEG) Urine RBC 0 /HPF (0-2) Urine WBC 20-40 /HPF (0-4) Urine Squamous Epithelial Cells Mod /LPF Urine Bacteria Few /HPF (0-FEW) Urine Mucus Slight /LPF Test 09/04/21 20:30 09/04/21 22:50 09/05/21 07:35 09/05/21 09:45 Troponin I Quantitative 0.270 ng/mL (0.000-0.055) 0.250 ng/mL (0.000-0.055) White Blood Count 4.0 x10^3/uL (4.0-11.0) Red Blood Count 4.70 x10^6/uL (4.30-5.70) Hemoglobin 12.8 g/dL (13.0-17.5) Hematocrit 41.8 % (39.0-53.0) Mean Corpuscular Volume 88 fL (79-100) Mean Corpuscular Hemoglobin 27 pg (25-35) Mean Corpuscular Hemoglobin Concent 31 g/dL (31-37) Red Cell Distribution Width 18.3 % (11.5-14.5) Platelet Count 165 x10^3/uL (140-400) Neutrophils (%) (Auto) 40 % (31-73) Lymphocytes (%) (Auto) 45 % (24-48) Monocytes (%) (Auto) 12 % (0-9) Eosinophils (%) (Auto) 3 % (0-3) Basophils (%) (Auto) 1 % (0-3) Neutrophils # (Auto) 1.6 x10^3/uL (1.8-7.7) Lymphocytes # (Auto) 1.8 x10^3/uL (1.0-4.8) Monocytes # (Auto) 0.5 x10^3/uL (0.0-1.1) Eosinophils # (Auto) 0.1 x10^3/uL (0.0-0.7) Basophils # (Auto) 0.0 x10^3/uL (0.0-0.2) Sodium Level 141 mmol/L (136-145) Potassium Level 4.6 mmol/L (3.5-5.1) Chloride Level 107 mmol/L (98-107) Carbon Dioxide Level 23 mmol/L (21-32) Anion Gap 11 (6-14) Blood Urea Nitrogen 26 mg/dL (8-26) Creatinine 1.5 mg/dL (0.7-1.3) Estimated GFR (Cockcroft-Gault) 56.7 Glucose Level 89 mg/dL (70-99) Calcium Level 8.5 mg/dL (8.5-10.1) Urine Opiates Screen Neg (NEG) Urine Methadone Screen Neg (NEG) Urine Barbiturates Neg (NEG) Urine Phencyclidine Screen Neg (NEG) Urine Amphetamine/Methamphetamine Neg (NEG) Urine Benzodiazepines Screen Neg (NEG) Urine Cocaine Screen Pos (NEG) Urine Cannabinoids Screen Neg (NEG) Urine Ethyl Alcohol Neg (NEG) Review All relevant outside records, renal labs, imaging studies, telemetry/EKG's were reviewed. Images Images AP and Lateral Views of the Chest 09/04/2021 2:35 PM Indication: Reason: chest pain / Comparison: Chest radiograph March 11, 2021 Findings: Interstitial thickening has improved in the interim. Heart size is top normal. No pneumothorax or effusion is seen. No acute osseous changes are identified. IMPRESSION: No evidence of acute cardiopulmonary process. DEYSI URRUTIA MD Sep 05, 2021 10:14
[2021-09-05] MEDS ORDERED: AMOX1TAB61 PO (11:10)
--- NOTE | 2021-09-05 11:55 | PDOC ---
[employer] PROGRESS NOTE Date of Service DOS: DATE: 09/05/21 TIME: 11:43 Chief Complaint Chief Complaint Chest pain Hx of CAD (s/p 2 stents) Chronic renal insufficiency Elevated D-dimer Elevated troponin Urinary tract infection History of Present Illness History of Present Illness 09/05 Patient seen and examined at bedside No acute overnight events noted Discussed cardiology work up with patient Per patient, had heart cath 2-3 weeks ago Charts reviewed Case discussed with RN and SW Vitals/I&O Vitals/I&O: Vital Signs Date Time Temp Pulse Resp B/P (MAP) Pulse Ox O2 Delivery O2 Flow Rate FiO2 09/05/21 10:10 96.9 73 18 151/90 (110) 98 Room Air 96.9 I & O 09/04/21 09/04/21 09/05/21 14:59 22:59 06:59 Intake Total 300 ml 420 ml Output Total 1300 ml Balance 300 ml -880 ml Physical Exam Physical Exam: GENERAL: No apparent distress. Alert and oriented. Comfortable. Pleasant HEENT: Normal cephalic atraumatic, external auditory canals are patent. EYES: EOMI, PERRLA MUSCULOSKELETAL: Well developed, well nourished, good range of motion. ENDOCRINE: No thyromegaly was palpated. LYMPHATICS: No cervical chain or axillary nodes were noted. HEMATOPOIETIC: No bruising. NECK: Supple, no JVD, no thyromegaly was noted. LUNGS: Clear to auscultation in all lung carbone without rhonchi or wheezing. HEART: RRR, S1, S2 present. Peripheral pulses intact, no obvious murmurs were noted. ABDOMEN: He has several old incisions consistent with his exploratory laparotomy and left nephrectomy. EXTREMITIES: The right shoulder has some old surgical changes and both feet have some old surgical changes. NEUROLOGIC: Normal speech, normal tone. AAOx3, moves all extremities, no obvious focal deficits. PSYCHIATRIC: Normal affect, normal mood. Stable. Pleasant SKIN: No ulcerations or rashes, good skin turgor, no jaundice. VASCULAR: Good capillary refill, neurovascular bundle appears to be intact. General: Alert, Oriented X3, Cooperative, No acute distress Heart: Regular rate (SR/), Normal S1, Normal S2, No murmurs Lungs: Clear Abdomen: Normal bowel sounds, Soft, No tenderness Extremities: No cyanosis, No edema Skin: No breakdown, No significant lesion Labs Labs: Laboratory Tests Test 09/04/21 13:35 09/04/21 15:41 09/04/21 15:42 09/04/21 17:06 White Blood Count 4.5 x10^3/uL (4.0-11.0) Red Blood Count 4.99 x10^6/uL (4.30-5.70) Hemoglobin 13.5 g/dL (13.0-17.5) Hematocrit 41.9 % (39.0-53.0) Mean Corpuscular Volume 84 fL (79-100) Mean Corpuscular Hemoglobin 27 pg (25-35) Mean Corpuscular Hemoglobin Concent 32 g/dL (31-37) Red Cell Distribution Width 17.5 % (11.5-14.5) Platelet Count 219 x10^3/uL (140-400) Neutrophils (%) (Auto) 48 % (31-73) Lymphocytes (%) (Auto) 35 % (24-48) Monocytes (%) (Auto) 14 % (0-9) Eosinophils (%) (Auto) 2 % (0-3) Basophils (%) (Auto) 1 % (0-3) Neutrophils # (Auto) 2.2 x10^3/uL (1.8-7.7) Lymphocytes # (Auto) 1.6 x10^3/uL (1.0-4.8) Monocytes # (Auto) 0.7 x10^3/uL (0.0-1.1) Eosinophils # (Auto) 0.1 x10^3/uL (0.0-0.7) Basophils # (Auto) 0.0 x10^3/uL (0.0-0.2) Sodium Level 143 mmol/L (136-145) Potassium Level 4.4 mmol/L (3.5-5.1) Chloride Level 106 mmol/L (98-107) Carbon Dioxide Level 29 mmol/L (21-32) Anion Gap 8 (6-14) Blood Urea Nitrogen 31 mg/dL (8-26) Creatinine 2.1 mg/dL (0.7-1.3) Estimated GFR (Cockcroft-Gault) 38.4 BUN/Creatinine Ratio 15 (6-20) Glucose Level 118 mg/dL (70-99) Calcium Level 9.0 mg/dL (8.5-10.1) Total Bilirubin 0.4 mg/dL (0.2-1.0) Aspartate Amino Transf (AST/SGOT) 23 U/L (15-37) Alanine Aminotransferase (ALT/SGPT) 17 U/L (16-63) Alkaline Phosphatase 115 U/L (46-116) Troponin I Quantitative 0.268 ng/mL (0.000-0.055) Total Protein 7.4 g/dL (6.4-8.2) Albumin 3.3 g/dL (3.4-5.0) Albumin/Globulin Ratio 0.8 (1.0-1.7) Influenza Type A Antigen Negative (NEGATIVE) Influenza Type B Antigen Negative (NEGATIVE) SARS-CoV-2 RNA (SU) Negative (Negative) SARS-CoV-2 Antigen (Rapid) Negative (NEGATIVE) D-Dimer (Natalie) 0.66 ug/mlFEU (0.00-0.50) Urine Collection Type Unknown Urine Color Yellow Urine Clarity Clear Urine pH 6.5 (<5.0-8.0) Urine Specific [place] 1.025 (1.000-1.030) Urine Protein Negative mg/dL (NEG-TRACE) Urine Glucose (UA) Negative mg/dL (NEG) Urine Ketones (Stick) Negative mg/dL (NEG) Urine Blood Negative (NEG) Urine Nitrite Negative (NEG) Urine Bilirubin Negative (NEG) Urine Urobilinogen Dipstick 1.0 mg/dL (0.2 mg/dL) Urine Leukocyte Esterase Moderate (NEG) Urine RBC 0 /HPF (0-2) Urine WBC 20-40 /HPF (0-4) Urine Squamous Epithelial Cells Mod /LPF Urine Bacteria Few /HPF (0-FEW) Urine Mucus Slight /LPF Test 09/04/21 20:30 09/04/21 22:50 09/05/21 07:35 09/05/21 09:45 Troponin I Quantitative 0.270 ng/mL (0.000-0.055) 0.250 ng/mL (0.000-0.055) White Blood Count 4.0 x10^3/uL (4.0-11.0) Red Blood Count 4.70 x10^6/uL (4.30-5.70) Hemoglobin 12.8 g/dL (13.0-17.5) Hematocrit 41.8 % (39.0-53.0) Mean Corpuscular Volume 88 fL (79-100) Mean Corpuscular Hemoglobin 27 pg (25-35) Mean Corpuscular Hemoglobin Concent 31 g/dL (31-37) Red Cell Distribution Width 18.3 % (11.5-14.5) Platelet Count 165 x10^3/uL (140-400) Neutrophils (%) (Auto) 40 % (31-73) Lymphocytes (%) (Auto) 45 % (24-48) Monocytes (%) (Auto) 12 % (0-9) Eosinophils (%) (Auto) 3 % (0-3) Basophils (%) (Auto) 1 % (0-3) Neutrophils # (Auto) 1.6 x10^3/uL (1.8-7.7) Lymphocytes # (Auto) 1.8 x10^3/uL (1.0-4.8) Monocytes # (Auto) 0.5 x10^3/uL (0.0-1.1) Eosinophils # (Auto) 0.1 x10^3/uL (0.0-0.7) Basophils # (Auto) 0.0 x10^3/uL (0.0-0.2) Sodium Level 141 mmol/L (136-145) Potassium Level 4.6 mmol/L (3.5-5.1) Chloride Level 107 mmol/L (98-107) Carbon Dioxide Level 23 mmol/L (21-32) Anion Gap 11 (6-14) Blood Urea Nitrogen 26 mg/dL (8-26) Creatinine 1.5 mg/dL (0.7-1.3) Estimated GFR (Cockcroft-Gault) 56.7 Glucose Level 89 mg/dL (70-99) Calcium Level 8.5 mg/dL (8.5-10.1) Urine Opiates Screen Neg (NEG) Urine Methadone Screen Neg (NEG) Urine Barbiturates Neg (NEG) Urine Phencyclidine Screen Neg (NEG) Urine Amphetamine/Methamphetamine Neg (NEG) Urine Benzodiazepines Screen Neg (NEG) Urine Cocaine Screen Pos (NEG) Urine Cannabinoids Screen Neg (NEG) Urine Ethyl Alcohol Neg (NEG) Review of Systems Review of Systems: ROS negative Assessment and Plan Assessmemt and Plan Problems Medical Problems: (1) NSTEMI (non-ST elevated myocardial infarction) Status: Acute (2) Renal failure Status: Acute Chest pain Hx of CAD (s/p 2 stents) Chronic renal insufficiency Elevated D-dimer Elevated troponin Urinary tract infection Plan Probable discharge per cardiology/nephrology approval Cardiology and nephrology input appreciated Continue monitoring on telemetry Continue serial enzymes Continue serial EKGs Continue IV antibiotics Restarted home meds DVT prophylaxis Full Code Comment Review of Relevant I have reviewed the following items martinez (where applicable) has been applied. Medications: Current Medications Medications (Trade) Dose Ordered Sig/Tyler Route PRN Reason Start Time Stop Time Status Last Admin Dose Admin Fentanyl Citrate (Fentanyl 2ml Vial) 50 mcg PRN Q1HR PRN IVP PAIN 09/04/21 17:15 09/05/21 17:14 09/05/21 02:01 Ceftriaxone Sodium (Rocephin) 1 gm Q24H IVP 09/04/21 19:15 09/04/21 22:04 Aspirin (Aspirin Chewable) 81 mg DAILY PO 09/05/21 09:00 09/05/21 08:37 Duloxetine HCl (Cymbalta) 30 mg DAILY PO 09/05/21 09:00 09/05/21 08:37 Furosemide (Lasix) 40 mg DAILY PO 09/05/21 09:00 09/05/21 08:37 Losartan Potassium (Cozaar) 100 mg DAILY PO 09/05/21 09:00 09/05/21 08:37 Carvedilol (Coreg) 25 mg BIDWMEALS PO 09/05/21 08:00 09/05/21 08:38 Oxybutynin Chloride (Ditropan) 5 mg BID PO 09/05/21 09:00 09/05/21 08:37 Cyclobenzaprine HCl (Flexeril) 10 mg PRN TID PRN PO MUSCLE SPASMS 09/04/21 23:30 09/05/21 02:01 Justifications for Admission Other Justification ISAAC AVILA III DO Sep 05, 2021 11:55
--- NOTE | 2021-09-05 12:45 | NUR ---
SS following for discharge planning. SS reviewed pt chart and discussed with pt RN. Pt is from home with spouse and is currently on room air. COVID19 negative. Cardiology and Nephrology following. Discharge order on the chart for home with self care.
[2021-09-05] MEDS ORDERED: ATORVASTATIN CALCIUM 40 MG TABLET. PO SCH (21:00)
[2021-09-05] MEDS ORDERED: LACTOBACILLUS RHAMNOSUS GG 1 CAPSULE. PO SCH (21:00)
--- NOTE | 2021-09-06 09:03 | DS ---
ADMISSION DIAGNOSIS: Chest pain. DISCHARGE DIAGNOSES: 1. Resolving chest pain. 2. Chronic renal insufficiency. 3. History of syncope. 4. Congestive heart failure. 5. Hypertension. 6. Hyperlipidemia. 7. Nonischemic cardiomyopathy. 8. Chronic obstructive pulmonary disease. 9. History of cocaine abuse. 10. Benign prostatic hypertrophy. 11. Chronic pain. 12. Depression, anxiety. CONSULTS: Cardiology and Nephrology. HOSPITAL COURSE: The patient is a pleasant middle-aged male who presented with chest pain. He has known coronary disease. We admitted the patient. The above consults were obtained. His troponins really never went higher than 0.27, but his creatinine is also high at 2.1. He has some chronic renal issues. His cardiac workup was negative. Yesterday, I saw and examined him. He was doing well, requesting to go home. I put in orders for discharge home if okay with consultants and he did make it home. DISPOSITION: Home. ACTIVITY: As tolerated. DIET: Cardiac. DISCHARGE MEDICATIONS: Please see the MRAD. Augmentin 875/125 one b.i.d., aspirin 81 a day, atorvastatin 80 a day, Coreg 25 b.i.d., cyclobenzaprine 10 t.i.d., Cymbalta 30 mg a day, Lasix 40 a day, losartan 50 every day, oxybutynin 10 daily, Phenergan with codeine cough syrup 5 mL q.6 hours p.r.n., Flomax 0.4 a day. Total time of [address]: Agueda TID: [id number]
== END 2021-09-05 23:57 | disposition home or self-care (01) ==
LOC: ER 13:28 → INTOOBSV 16:31 → ED HOLD 16:31 → 6 SOUTH 20:09
PROVIDERS: ADMIT Internal Medicine; ATTEND Internal Medicine
DX: I21.4 Non-ST elevation (NSTEMI) myocardial infarction (principal); Z20.822 Contact with and (suspected) exposure to COVID-19; I13.0 Hypertensive heart and chronic kidney disease with heart failure and stage 1 through stage 4 chronic kidney disease, or unspecified chronic kidney disease; I50.22 Chronic systolic (congestive) heart failure; N18.30 Chronic kidney disease, stage 3 unspecified; I25.10 Atherosclerotic heart disease of native coronary artery without angina pectoris; J44.9 Chronic obstructive pulmonary disease, unspecified; N17.9 Acute kidney failure, unspecified; N39.0 Urinary tract infection, site not specified; N40.0 Benign prostatic hyperplasia without lower urinary tract symptoms; I42.8 Other cardiomyopathies; E78.5 Hyperlipidemia, unspecified; E78.00 Pure hypercholesterolemia, unspecified; F14.10 Cocaine abuse, uncomplicated; F32.A Depression, unspecified; F41.9 Anxiety disorder, unspecified; R77.8 Other specified abnormalities of plasma proteins; M19.90 Unspecified osteoarthritis, unspecified site; D64.9 Anemia, unspecified; G89.29 Other chronic pain; R53.82 Chronic fatigue, unspecified; R07.89 Other chest pain; R53.83 Other fatigue; Z87.891 Personal history of nicotine dependence; Z90.5 Acquired absence of kidney; Z95.5 Presence of coronary angioplasty implant and graft; Z79.899 Other long term (current) drug therapy; Z98.890 Other specified postprocedural states; Z79.82 Long term (current) use of aspirin
CPT/HCPCS: 36415; 71046; 80048; 80053; 80307; 81001; 84484; 85025; 85379; 87086; 87426; 87804; 96374; 96375; 99285; G0378; J0696; J3010; U0003; U0005; G0379